=== PATIENT | female | born 1980 | race Asian ===

== ENCOUNTER → 2021-02-03 08:43 | Outpatient (BNVA) | payer OTHER, SELFPAY | PROVIDERS: PCP Nurse Practitioner Family; Visit Provider Nurse Practitioner ==

== ENCOUNTER 2021-02-08 10:47 | Outpatient (REF) | payer OTHER, SELFPAY ==
[2021-02-08 11:30] LABS: MANUAL DIFF FLAG NO
[2021-02-08 11:34] LABS: Basophils Percent Auto 0.8 % (0-2); Eosinophils Absolute Auto 0.1 X10*3/uL (0.0-0.4); Eosinophils Percent Auto 2.9 % (0-4); Hematocrit 39.3 % (37-47); Lymphocytes Absolute Auto 1.9 X10*3/uL (1.2-4.9); Lymphocytes Percent Auto 49.2 % (20-40); Mean Corpuscular HGB Conc 33.1 g/dl (31.0-35.0); Mean Corpuscular Hemoglobin 30.5 pg (27.0-33.0); Mean Corpuscular Volume 92.3 fL (80-98); Mean Platelet Volume 10.2 fL (9.4-12.3); Monocytes Absolute Auto 0.3 X10*3/uL (0.1-1.2); Monocytes Percent Auto 7.7 % (2-11); Neutrophils Absolute Auto 1.5 X10*3/uL (2.0-8.3); Neutrophils Percent Auto 39.4 % (45-73); Platelet Count 198 X10*3/uL (160-400); Red Blood Count 4.26 X10*6/uL (4.20-5.50); Red Cell Distribution Width 12.2 % (11.0-16.0); White Blood Count 3.8 X10*3/uL (4.8-10.8)
== END 2021-02-08 10:48 | disposition home or self-care (01) ==
LOC: HO.LAB 10:47
PROVIDERS: PCP Internal Medicine; Visit Provider Nurse Practitioner
DX: K21.00 Gastro-esophageal reflux disease with esophagitis, without bleeding (principal); R13.10 Dysphagia, unspecified
CPT/HCPCS: 36415; 85025

== ENCOUNTER → 2021-03-11 09:37 | Outpatient (BNVA) | payer OTHER, SELFPAY | PROVIDERS: PCP Internal Medicine; Visit Provider Nurse Practitioner ==

== ENCOUNTER 2021-04-12 12:06 | Day surgery (SDC) | payer OTHER, SELFPAY ==
[2021-04-05 11:24] VITALS: BMI 18.3
--- NOTE | 2021-04-08 08:52 | HO.ANESPROP2 ---
HPI - Anesthesia Eval Consult details Narrative: 40yo F for Upper Endoscopy PMFSH Active Problems Active Problems: All Active Problems (Updated 04/05/21 @ 11:17 by Sara Richey) GERD (gastroesophageal reflux disease) (Acute) Dysphagia (Acute) Bile reflux esophagitis (Acute) Constipation (Acute) Past Medical History Medical History GERD (gastroesophageal reflux disease) Surgical History Surgical History History of esophagogastroduodenoscopy (EGD) Hx of colonoscopy Social History Social History Are you a primary ocular care technologist to a significant other at home: No Do you presently have visiting nurse or other home services: No Alcohol intake: current Alcohol intake frequency: does not drink Use of substances other than those prescribed or required for medical reasons: No Are you DNR?: No Advance Directives Information Provided: No Recently lost weight without trying: No Eating poorly because of decreased appetite: No Nutrition Risks: No Nutritional Risk Patient : No FDLMP: 03/21/21 Meds Allergies Allergy/AdvReac Type Severity Reaction Status Date / Time No Known Allergies Allergy Verified 03/11/21 09:37 Home Medications Medication Instructions Recorded Confirmed Last Taken Type ipratropium bromide 21 mcg (0.03 1 spray INTRANASAL BEDTIME 03/11/21 04/05/21 Unknown History %) nasal spray Exam Exam Date and Time: April 08, 2021 0852 Height,Weight and Vital Signs: Height 5 ft 5 in Weight 49.895 kg Pertinent Lab Results Pertinent Lab Results: Laboratory Tests 02/08/21 11:02 WBC 3.8 L Hgb 13.0 Hct 39.3 Plt Count 198 Assessment and Plan Assessment Anesthesia Assessment: Chart Reviewed
[2021-04-12 12:44] LABS: UPreg QC Valid YES; Urine Pregnancy NEGATIVE (NEGATIVE)
[2021-04-12 12:50] VITALS: BP 104/67; PULSE 70; RESP 16; TEMP 36.4; O2SAT 100
[2021-04-12] MEDS: Lactated Ringers 1,000 ML 100 ML IVCONT (12:58)
--- NOTE | 2021-04-12 13:08 | P.CONAN_ITS ---
FORM[facility]LY [facility] Active Problems Active Problems: All Active Problems (Updated 04/05/21 @ 11:17 by Sara johnson) GERD (gastroesophageal reflux disease) (Acute) Dysphagia (Acute) Bile reflux esophagitis (Acute) Constipation (Acute) Past Medical History Medical History GERD (gastroesophageal reflux disease) Surgical History Surgical History History of esophagogastroduodenoscopy (EGD) Hx of colonoscopy Social History Social History Are you a primary palliative care specialist to a significant other at home: No Do you presently have visiting nurse or other home services: No Alcohol intake: current Alcohol intake frequency: does not drink Use of substances other than those prescribed or required for medical reasons: No Are you DNR?: No Advance Directives Information Provided: No Recently lost weight without trying: No Eating poorly because of decreased appetite: No Nutrition Risks: No Nutritional Risk Patient : No FDLMP: 03/21/21 Meds Allergies Allergy/AdvReac Type Severity Reaction Status Date / Time No Known Allergies Allergy Verified 03/11/21 09:37 Active Medications: Current Medications Generic Name Dose Route Start Last Admin Trade Name Ammon PRN Reason Stop Dose Admin Lactated Ringer's 1,000 mls @ 100 mls/hr 04/12/21 12:30 04/12/21 12:58 Lr IVCONT 100 mls/hr .Q10H ITALO Administration Home Medications Medication Instructions Recorded Confirmed Last Taken Type ipratropium bromide 21 mcg (0.03 1 spray INTRANASAL BEDTIME 03/11/21 04/05/21 Unknown History %) nasal spray Exam Exam Date and Time: April 12, 2021 1308 Height,Weight and Vital Signs: Height 5 ft 5 in Weight 49.895 kg Last Vital Signs Temp 97.6 F 04/12/21 12:50 Pulse 70 04/12/21 12:50 Resp 16 04/12/21 12:50 BP 104/67 04/12/21 12:50 Pulse Ox 100 04/12/21 12:50 Pertinent Lab Results Pertinent Lab Results: Laboratory Tests 04/12/21 12:25 Urine Test NEGATIVE Airway Mallampati Class: II TM Dist: >3cm Neck ROM: Full Heart: RRR Lungs: cTA
--- NOTE | 2021-04-12 13:24 | P.OP_ITS ---
Operative Note Operative Note Date of Service: 05/21/21 Narrative: Pre-op diagnosis: GERD, dysphagia Post-op diagnosis: other (GERD, dysphagia, gastritis) Procedure: FLEXIBLE TRANSORAL UPPER GASTROINTESTINAL ENDOSCOPY WITH BIOPSIES AND ESOPHAGEAL BALLOON DILATION Consent: Indications for the procedure and potential complications of bleeding, perforation, reaction to medications and missed diagnosis were discussed with the patient and informed consent was obtained. Instrument: Olympus GIF H 190 mid size upper endoscope Monitoring: Vital signs and clinical assessment, continuous EKG monitoring, Pulse oximetry, Carbon Dioxide monitoring and blood pressure monitoring were done throughout the procedure. Procedure: The patient was placed in the left lateral decubitis position and pre-procedure medications were administered and a bite block was placed. The endoscope was inserted into the mouth and advanced under direct vision to the third part of duodenum. A careful inspection was made as the upper endoscope was withdrawn including a retroflexed examination of the proximal stomach; Findings and interventions are described below. Findings: Larynx: Mild edema of the arytenoid cartilages Esophagus: GE junction at 35cms. No esophagitis, Carroll, stricture or ring. Biopsies were obtained from proximal esophagus to check for EOE. Esophageal balloon dilation was performed with the 19 mm (57F) CRE balloon for 60 seconds x1 Stomach: Mild gastric erythema. Biopsies were obtained. Grade 2 flap valve on retroflexed examination of the cardia. Duodenum: Normal bulb and descending duodenum Intervention: Biopsies and esophageal balloon dilation as noted above Impression and Post Procedure Diagnosis: Endoscopy Findings: LARYNX: Changes suggestive of LPRD ESOPHAGUS: GE junction at 35cms. No esophagitis, Carroll, stricture or ring. Biopsies were obtained from proximal esophagus to check for EOE. Esophageal balloon dilation was performed with the 19 mm (57F) CRE balloon for 60 seconds x1 STOMACH: Gastritis Plan: Await pathology results Patient has an appointment on 07/12/21 in the GI Clinic with AMALIA Shook. Above findings were reviewed with the patient and GERD and Esophageal Spasm handouts were given in the discharge area Surgeon: Rc Olivier MD Anesthesia: MAC (Brenda Henderson CRNA) Was an Repairer Shoe Sticks used for this Procedure?: Yes Repairer Shoe Sticks: Gary Gómez Estimated blood loss (mL): 0 Pathology: other (A- GASTRIC ANTRUM BXS R/O H. PYLORI B- PROXIMAL ESOPHAGUS BXS R/O EOE) Condition: stable Disposition: PACU
--- NOTE | 2021-04-12 13:24 | MHC.SHP ---
Pre-Procedural Eval Section A The patient is an INPATIENT: No The History & Physical has been completed within 30 days and I have reviewed it.: No Section B Chief Complaint: Dysphagia Details of Present Illness: GERD, dysphagia Relevant Family History (Specify if Yes): No Relevant Social History: None Present Medications: see Short Stay Collaborative assessment Medical History: Significant History (GERD, chronic constipation) History of Previous Operations: Relevant previous surgery/procedure and date(s) (History of esophagogastroduodenoscopy (EGD) Hx of colonoscopy) Allergies: Allergies Allergy/AdvReac Type Severity Reaction Status Date / Time No Known Allergies Allergy Verified 03/11/21 09:37 Review of Systems Sugical H&P ROS: Negative: Constitution, Cardiovascular and Respiratory and Yes, Specify: Gastrointestinal (dysphagia) Exam Surgical H&P Exam: Normal: Heart, Normal: Lungs, Normal: Extremities and Normal: Abdomen Plan Diagnosis/Plan: Unchanged I have reviewed the history and physical and performed a pertinent physical examination on my patient. No changes have occurred unless specified.
[2021-04-12 13:57] VITALS: BP 90/52; PULSE 73; RESP 16; TEMP 36.3; O2SAT 98
[2021-04-12 14:02] VITALS: BP 92/62; PULSE 56; RESP 16; O2SAT 100
[2021-04-12 14:17] VITALS: BP 93/64; PULSE 58; RESP 16; O2SAT 100
[2021-04-12 14:33] VITALS: BP 97/61; PULSE 58; RESP 16; O2SAT 100
[2021-04-12 14:43] VITALS: BP 109/70; PULSE 57; RESP 16; O2SAT 100
== END 2021-04-12 15:35 | disposition home or self-care (01) ==
PROVIDERS: Nurse Practitioner; PCP Internal Medicine; Visit Provider Internal Medicine Gastroenterology
PROC: 0DJ08ZZ Inspection of Upper Intestinal Tract, Via Natural or Artificial Opening Endoscopic (ICD-10-PCS; CPT 43235; principal; 2021-04-12 13:30)
DX: K22.4 Dyskinesia of esophagus (principal); K21.9 Gastro-esophageal reflux disease without esophagitis; R13.10 Dysphagia, unspecified; K29.50 Unspecified chronic gastritis without bleeding; Z79.899 Other long term (current) drug therapy
CPT/HCPCS: 43249; 43239; 81025; 88305; 88342; C1726; J3010

== ENCOUNTER 2021-05-23 02:05 | Emergency (ER) | payer OTHER, SELFPAY ==
[2021-05-23 02:39] VITALS: BP 114/71; PULSE 81; RESP 16; TEMP 36.4; O2SAT 98; BMI 18.3
--- NOTE | 2021-05-23 03:09 | ED.ABDPAIN ---
HPI - Abdominal Pain General Chief Complaint: Abdominal Pain Stated Complaint: ABD pain Time Seen by Provider: 05/23/21 02:15 Source: patient Mode of arrival: ambulatory Limitations: no limitations History of Present Illness HPI narrative: Patient comes emergency room complaining of suprapubic pain and burning sensation with urination. Patient states she is prone to having UTIs. Patient denies fever and chills, no back pain or flank pain. Patient denies vomiting or diarrhea Related Data Home Medications Medication Instructions Recorded Confirmed ipratropium bromide 21 mcg (0.03 1 spray INTRANASAL BEDTIME 03/11/21 04/05/21 %) nasal spray Previous Rx's Medication Instructions Recorded sucralfate 1 gram tablet 1 g PO DAILY 30 Days #30 tab 02/03/21 sennosides 8.6 mg capsule 17.2 mg PO BEDTIME 30 Days #60 cap 03/11/21 dexlansoprazole 60 mg 60 mg PO DAILY #30 cap 05/11/21 capsule,biphase delayed release cefuroxime axetil 250 mg PO Q12H #13 tab 05/23/21 phenazopyridine 100 mg PO TID #6 tab 05/23/21 Allergies Allergy/AdvReac Type Severity Reaction Status Date / Time No Known Allergies Allergy Verified 03/11/21 09:37 Review of Systems Review of Systems Constitutional : No Weight loss, No Fever, No Chills, No Night Sweats, No Fatigue, No Malaise ENT/Mouth : No Hearing loss, No Ear Pain, No Nasal Congestion, No Sinus Pain, No Hoarseness, No sore throat, No Rhinorrhea, No Swallowing Difficulty Eyes: No Eye Pain, No Swelling, No Redness, No Foreign Body, No Discharge, No Vision Changes Cardiovascular : No Chest Pain, No SOB, No Dyspnea on Exertion, No Orthopnea, No Edema, No Palpitations Respiratory : No Cough, No Sputum, No Wheezing, No Smoke Exposure, No Dyspnea Gastrointestinal : No Nausea, No Vomiting, No Diarrhea, No Constipation, complaining of suprapubic discomfort, No Hematochezia, No Melena Genitourinary : no irregular bleeding, complaining of dysuria, urinary frequency, no hematuria, No Urinary Incontinence, No Urgency, No Flank Pain, No Urinary Flow Changes, No Hesitancy Musculoskeletal : No joint pain, No Myalgias, No Joint Swelling Skin : No Skin Lesions, No rash Neuro : No Weakness, No Numbness, No Paresthesias, No Loss of Consciousness, No Dizziness, No Headache Psych : No Anxiety/Panic, No Depression, No SI/HI/AH/VH, No Social Issues, Heme/Lymph: No Bruising, No Bleeding,No Lymphadenopathy Endocrine : No Polyuria, No Polydipsia, No Temperature Intolerance Physical Exam Vital Signs: Vital Signs: Last Vital Signs Temp 97.6 F 05/23/21 02:39 Pulse 81 05/23/21 02:39 Resp 16 05/23/21 02:39 BP 114/71 05/23/21 02:39 Pulse Ox 98 05/23/21 02:39 Body Mass Index 18.3 Appearance: Alert. Oriented X3. No acute distress. Eyes: Pupils equal, round and reactive to light. ENT: Pharynx normal. Neck: Normal inspection. Neck supple. No lymph nodes noted. No crepitus CVS: Normal heart rate and rhythm. Pulses normal. Normal S1 and S2 Respiratory: No respiratory distress. Breath sounds normal. No Wheezing. No rales Abdomen: Soft, mild discomfort to palpation over the suprapubic area, no left or right lower quadrant pain. No rigidity. No distention. good BS x4 Skin: Skin warm and dry. Normal skin color. Normal skin turgor. Extremities: No lower extremity edema. No lower extremity edema. No Lacerations. No Rash Neuro: Oriented X 3. No motor deficit. No sensory deficit. Moving all extermities. No slurred speech. Course Course Course Narrative: Patient's urine is positive for UTI. Patient states that she only has 1 kidney, had 1 kidney surgical removed, unclear the reason, but she thinks is secondary to a defect. Patient was given the 1st dose of cefuroxime and phenazopyridine in the emergency room. At this time, pyelonephritis is not suspected, sepsis is not suspected. MDM - Abdominal Pain Lab Data Labs: Lab Results 05/23/21 05/23/21 Range/Units 03:05 03:05 Urine Color YELLOW Urine Appearance HAZY Urine pH 6.0 (5.0-8.0) Ur Specific [place] <= 1.005 (1.005-1.025) Urine Protein NEG (NEG-TRACE) MG/DL Urine Glucose (UA) NEG (NEG) MG/DL Urine Ketones NEG (NEG) MG/DL Urine Blood 2+ H (NEG) Urine Nitrite NEG (NEG) Ur Leukocyte Esterase 3+ H (NEG) Urine Test NEGATIVE (NEGATIVE) Discharge Plan Discharge Clinical Impression: UTI (urinary tract infection) Qualifiers: Urinary tract infection type: site unspecified Hematuria presence: without hematuria Qualified Code(s): N39.0 - Urinary tract infection, site not specified Patient Disposition: Home, Self-Care Instructions: Urinary Tract Infection in Women (ED) Additional Instructions: Please follow-up with your primary care physician tomorrow. If you have any worsening or new symptoms, please return to the emergency room or call 911 Prescriptions: New cefuroxime axetil 250 mg tablet 250 mg PO Q12H Qty: 13 RF: 0 phenazopyridine 100 mg tablet 100 mg PO TID Qty: 6 RF: 0 No Action dexlansoprazole [Dexilant] 60 mg capsule,biphase delayed releas 60 mg PO DAILY Qty: 30 RF: 0 senna 8.6 mg capsule 17.2 mg PO BEDTIME 30 Days Qty: 60 RF: 1 sucralfate [Carafate] 1 gram tablet 1 g PO DAILY 30 Days Qty: 30 RF: 3 PMFSH Past Medical History Medical History GERD (gastroesophageal reflux disease) Surgical History History of esophagogastroduodenoscopy (EGD) Hx of colonoscopy Social History Social History Are you a primary neurocritical care physician to a significant other at home: No Do you presently have visiting nurse or other home services: No Alcohol intake: current Alcohol intake frequency: does not drink Advance Directives: No Advance Directives Information Provided: No Patient : No
[2021-05-23 03:13] LABS: Glucose Urine UA NEG (NEG); Leukocyte Esterase Urine 3+ (NEG); Nitrite Urine NEG (NEG); Specific Gravity - Urine <= 1.005 (1.005-1.025); UACC Culture Trigger YES; Urine Blood 2+ (NEG); Urine Ketones NEG (NEG); Urine Protein NEG (NEG-TRACE)
[2021-05-23 03:16] LABS: Appearance Urine HAZY; Color Urine YELLOW
[2021-05-23 03:17] LABS: UPreg QC Valid YES; Urine Pregnancy NEGATIVE (NEGATIVE)
[2021-05-23 03:25] LABS: Bacteria Urine 1+ /LPF; Squamous Epithelial Cell Urine 1+ /LPF; UACC CULT YES; WBC Urine 30-49 /HPF (0-4)
[2021-05-23] MEDS: Phenazopyridine HCL 100 MG TABLET PO (03:33)
== END 2021-05-23 03:36 | disposition home or self-care (01) ==
PROVIDERS: Emergency Provider Emergency Medicine; PCP Internal Medicine
DX: N39.0 Urinary tract infection, site not specified (principal); Z90.5 Acquired absence of kidney
CPT/HCPCS: 81001; 81025; 87086; 99283

== ENCOUNTER → 2021-05-30 10:47 | Outpatient (BNVA) | payer OTHER, SELFPAY | PROVIDERS: PCP Internal Medicine; Visit Provider Nurse Practitioner ==

== ENCOUNTER → 2021-08-01 09:26 | Outpatient (BNVA) | payer OTHER, SELFPAY | PROVIDERS: PCP Internal Medicine; Visit Provider Nurse Practitioner ==

== ENCOUNTER 2021-08-10 07:53 | Outpatient (REF) | payer OTHER, SELFPAY ==
--- NOTE | ~2021-08-10 | US_ITS ---
EXAMINATION: US ABDOMEN COMPLETE CLINICAL INFORMATION: Gastroesophageal reflux disease without esophagitis. COMPARISON: CT abdomen and pelvis 12/27/2019. Ultrasound abdomen 07/25/2010. TECHNIQUE: Real-time imaging of the abdominal viscera. FINDINGS: PANCREAS: Normal. ABDOMINAL AORTA: The proximal, mid, and distal segments are normal in caliber. INFERIOR VENA CAVA: Visualized portions are normal. LIVER: Normal. The liver is normal in size. The liver contour is normal. Parenchymal echogenicity is normal. No focal hepatic lesion. There is no intrahepatic biliary duct dilatation seen. GALLBLADDER: Normal. The gallbladder is physiologically distended without evidence of stones, sludge, polyps, wall thickening or pericholecystic fluid. COMMON BILE DUCT: Normal in caliber measuring 0.8 cm in diameter. RIGHT KIDNEY: There is a 3 mm echogenic density with twinkle artifact in the upper pole questionable for a stone. No hydronephrosis or focal parenchymal lesions. The kidney measures 12.2 cm in maximum dimension. LEFT KIDNEY: Surgically absent. SPLEEN: Normal. The spleen measures 8.3 cm in maximum dimension. FREE FLUID: None. US/US abdomen complete IMPRESSION: Question small right renal stone. Surgically absent left kidney.
== END 2021-08-10 07:54 | disposition home or self-care (01) ==
LOC: HO.US 07:53
PROVIDERS: Visit Provider Nurse Practitioner
DX: K21.9 Gastro-esophageal reflux disease without esophagitis (principal)
CPT/HCPCS: 76700

== ENCOUNTER → 2021-09-15 09:49 | Outpatient (BNVA) | payer OTHER, SELFPAY | PROVIDERS: PCP Internal Medicine; Visit Provider Nurse Practitioner ==

== ENCOUNTER → 2021-11-03 08:50 | Outpatient (BNVA) | payer OTHER, SELFPAY | PROVIDERS: PCP Internal Medicine; Visit Provider Nurse Practitioner ==

== ENCOUNTER → 2021-12-15 09:04 | Outpatient (BNVA) | payer OTHER, SELFPAY | PROVIDERS: PCP Internal Medicine; Visit Provider Nurse Practitioner ==

== ENCOUNTER → 2022-03-14 10:35 | Outpatient (BNVA) | payer OTHER, SELFPAY | PROVIDERS: PCP Internal Medicine; Visit Provider Nurse Practitioner | DX: K21.00 Gastro-esophageal reflux disease with esophagitis, without bleeding (principal) ==

== ENCOUNTER → 2022-11-10 08:31 | Outpatient (BNVA) | payer OTHER, SELFPAY | PROVIDERS: PCP Internal Medicine; Visit Provider Nurse Practitioner | DX: K21.9 Gastro-esophageal reflux disease without esophagitis (principal) ==

== ENCOUNTER → 2022-12-14 08:10 | Outpatient (BNVA) | payer OTHER, SELFPAY | PROVIDERS: PCP Internal Medicine; Visit Provider Nurse Practitioner | DX: Z13.89 Encounter for screening for other disorder (principal) ==

== ENCOUNTER → 2023-01-04 08:01 | Outpatient (BNVA) | payer OTHER, SELFPAY | PROVIDERS: PCP Internal Medicine; Visit Provider Nurse Practitioner | DX: Z13.89 Encounter for screening for other disorder (principal) ==

== ENCOUNTER → 2023-03-29 07:56 | Outpatient (BNVA) | payer OTHER, SELFPAY | PROVIDERS: PCP Internal Medicine; Visit Provider Nurse Practitioner ==

== ENCOUNTER 2023-06-08 08:18 | Outpatient (AMB) | payer OTHER, SELFPAY ==
--- NOTE | 2023-06-08 08:27 | MHC.OFFVIS ---
Intake Vital Signs 06/08/23 08:29 Height 5 ft 5 in Weight 112 lb 6.972 oz BMI 18.7 BP 97/65 Blood Pressure Location Lt brachial Position Sitting Pulse 65 Intake Visit Reasons: 2 month follow up Intake Note: Karena presents in the office as a 2 month follow up. CC: She states that she is not having any concerns today. Net Developer Software Engineer C Required: Yes Net Developer Software Engineer C Name: Allergies No Known Allergies Allergy (Verified 06/08/23 08:29) HPI 2 month follow up HPI Details Assessment & Plan (1) Rectal bleeding: ?Code(s): K62.5 - Hemorrhage of anus and rectum ?Plan: Only occasional pain, but resolves with eating something and worse with OJ etc acidy. Having BRB on the TT, was using probiotics but stools too dry. Some rectal pain. Prcotosl cream. She moves her bowels every am, but having tenesmus despite not taking senna. Trial IB guard. ROV 6 weeks. (2) Tenesmus: ?Code(s): R19.8 - Other specified symptoms and signs involving the digestive system and abdomen (3) GERD (gastroesophageal reflux disease): ?Comment: With fairly extensive esophagitis on 04/2021 EGD she needs to stay on her Dexilant. ?Code(s): K21.9 - Gastro-esophageal reflux disease without esophagitis (4) Epigastric pain: ?Code(s): R10.13 - Epigastric pain (5) Dysphagia: ?Comment: Worsened with NSAIDs, improved with short-term Carafate likely caused by esophageal irritation ?Code(s): R13.10 - Dysphagia, unspecified (6) Constipation: ?Code(s): K59.00 - Constipation, unspecified ? ? ? Medications: New hydrocortisone 2.5 % (Proctosol HC) ? ? BE SURE TO INCLU DE RECTAL APPICATO R!! 1 appl? UT BID 30 grams 6RF hemorrho ids K64.9 - Unspecifie d hemorrhoids ? TODAY'S VISIT Tomasa # her translates per patient request The Proctosol cream resolved the bleeding. She continues on her Dexilant with good control of her GERD has famotidine for breakthrough. She has been using the IBD guard [id number] and will probably look for another homeopathic remedy as well for her tenesmus. Return office visit in 6 months REPLACED BY [facility] Medical History GERD (gastroesophageal reflux disease) Surgical History History of esophagogastroduodenoscopy (EGD) Hx of colonoscopy Social History Are you a primary patient care manager to a significant other at home: No Do you presently have visiting nurse or other home services: No Alcohol intake: current Alcohol intake frequency: does not drink Review of Systems Const Denies fatigue, Denies fever(s), Denies night sweats, Denies poor appetite and Denies weight loss ENT Reports Normal hearing present, Denies dental pain, Denies dysphagia, Denies hearing loss, Denies mouth pain, Denies odynophagia, Denies throat swelling, Denies tongue swelling and Reports other (Dentition adequate) Card Reports no additional complaints Resp Reports no additional complaints GI Denies abdominal pain, Denies melena, Denies bloating, Denies hematochezia, Denies constipation, Denies GI cramping, Denies dysphagia, Denies excessive flatus, Denies early satiety, Reports heartburn, Denies diarrhea, Denies nausea, Denies odynophagia, Denies vomiting and Denies hematemesis Skin/Breast Denies pruritus, Denies lesions, Denies rash and Denies jaundice Neuro Reports Normal hearing present and Denies Abnormal speech present Endo Denies fatigue Aller/Immun Denies throat swelling and Denies tongue swelling Physical Exam Vital Signs: Last Vital Signs Pulse 65 06/08/23 08:29 BP 97/65 06/08/23 08:29 BMI result Body Mass Index 18.7 Const General: cooperative, no acute distress, well developed and well groomed Nutritional Appearance: average body habitus and well nourished Orientation/consciousness: oriented to person, oriented to place and oriented to time Limitations: language barrier HEENT Head: Yes normocephalic and Yes atraumatic Eyes General: appearance normal, both eyes and all related structures Pupils: Equal, round and reactive pupils present Neck Neck: Yes normal visual inspection and Yes no lymphadenopathy Thyroid: Thyroid normal Resp Effort & Inspection: normal respiratory effort and able to speak in complete sentences Auscultation: clear to auscultation bilaterally Cardio Rate: regular rate Rhythm: regular rhythm Heart sounds: Normal, physiologic split S2 sound present Peripheral pulses: radial pulses present and posterior tibial pulses present GI Inspection: No distended and No Abdominal panniculus present Palpation (GI): Soft to palpation, nontender, no guarding, not rigid and No hepatosplenomegaly present Percussion: Yes normal to percussion Auscultation: normal bowel sounds Rectal Exam - Female: deferred Skin General skin exam: no rashes or lesions noted, turgor normal, skin not dry, no jaundice, No spider nevi and no striae Rashes: no rashes Nails: normal Neuro General: oriented to person, oriented to place and oriented to time Cranial nerves: Yes Equal, round and reactive pupils present and Yes Normal hearing present Speech: No Abnormal speech present Extrem General: Yes normal to inspection, No clubbing, No cyanosis and No edema Psych Appearance: grossly normal and well kempt Mental Status: mental status grossly normal Speech and movement: Normal speech and movement present Affect: normal affect Attitude: cooperative Thought process: Normal thought process present and not confabulating Thought content: Normal thought content present Insight: Fair insight present (Psych) Judgement: Fair judgement present (Psych) Assessment & Plan Assessment & Plan (1) Rectal bleeding: Code(s): K62.5 - Hemorrhage of anus and rectum Plan: Mandarin # her translates per patient request The Proctosol cream resolved the bleeding. She continues on her Dexilant with good control of her GERD has famotidine for breakthrough. She has been using the IBD guard [id number] and will probably look for another homeopathic remedy as well for her tenesmus. Return office visit in 6 months (2) Epigastric pain: Code(s): R10.13 - Epigastric pain (3) GERD (gastroesophageal reflux disease): Comment: With fairly extensive esophagitis on 04/2021 EGD she needs to stay on her Dexilant. Code(s): K21.9 - Gastro-esophageal reflux disease without esophagitis (4) Dysphagia: Comment: Worsened with NSAIDs, improved with short-term Carafate likely caused by esophageal irritation Code(s): R13.10 - Dysphagia, unspecified (5) Bile reflux esophagitis: Comment: Worsen with NSAID, active inflammation irritation on 04/2021 EGD no Carroll's Code(s): K21.00 - Gastro-esophageal reflux disease with esophagitis, without bleeding (6) Constipation: Code(s): K59.00 - Constipation, unspecified (7) Tenesmus: Code(s): R19.8 - Other specified symptoms and signs involving the digestive system and abdomen Coding Level of Care Code Est Pt Level 3 (49032) Diagnoses Rectal bleeding K62.5 Epigastric pain R10.13 GERD (gastroesophageal reflux disease) K21.9 Dysphagia R13.10 Bile reflux esophagitis K21.00 Constipation K59.00 Tenesmus R19.8
[2023-06-08 08:29] VITALS: BP 97/65; PULSE 65; BMI 18.7
== END 2023-06-08 08:38 | disposition home or self-care (01) ==
PROVIDERS: PCP Internal Medicine; Visit Provider Nurse Practitioner
DX: K62.5 Hemorrhage of anus and rectum (principal); R10.13 Epigastric pain; K21.9 Gastro-esophageal reflux disease without esophagitis; R13.10 Dysphagia, unspecified; K21.00 Gastro-esophageal reflux disease with esophagitis, without bleeding; K59.00 Constipation, unspecified; R19.8 Other specified symptoms and signs involving the digestive system and abdomen
CPT/HCPCS: 99213

== ENCOUNTER → 2023-06-08 08:18 | Outpatient (BNVA) | payer OTHER, SELFPAY | PROVIDERS: PCP Internal Medicine; Visit Provider Nurse Practitioner ==

== ENCOUNTER 2024-02-13 09:48 | Outpatient (AMB) | payer OTHER, SELFPAY ==
--- NOTE | 2024-02-13 10:00 | MHC.OFFVIS ---
Vital Signs 02/13/24 10:01 Height 5 ft 5 in Weight 114 lb 10.246 oz BMI 19.1 BP 102/72 Blood Pressure Location Lt brachial Position Sitting Pulse 69 Intake Visit Reasons: r/s from 01/08 Intake Note: Karena returns to in office follow up of GERD and constipation. CC: Patient c/o occasional abdominal cramping. Denies other GI symptoms. Certified Industrial Hygienist Required: Yes Certified Industrial Hygienist Name: Accompanied by: Allergies No Known Allergies Allergy (Verified 02/13/24 10:03) HPI HPI r/s from 01/08: Details: Assessment & Plan (1) Rectal bleeding: Code(s): K62.5 - Hemorrhage of anus and rectum Plan: Tomasa # her translates per patient request The Proctosol cream resolved the bleeding. She continues on her Dexilant with good control of her GERD has famotidine for breakthrough. She has been using the IB guard [id number] and will probably look for another homeopathic remedy as well for her tenesmus. Return office visit in 6 months (2) Epigastric pain: Code(s): R10.13 - Epigastric pain (3) GERD (gastroesophageal reflux disease): Comment: With fairly extensive esophagitis on 04/2021 EGD she needs to stay on her Dexilant. Code(s): K21.9 - Gastro-esophageal reflux disease without esophagitis (4) Dysphagia: Comment: Worsened with NSAIDs, improved with short-term Carafate likely caused by esophageal irritation Code(s): R13.10 - Dysphagia, unspecified (5) Bile reflux esophagitis: Comment: Worsen with NSAID, active inflammation irritation on 04/2021 EGD no Carroll's Code(s): K21.00 - Gastro-esophageal reflux disease with esophagitis, without bleeding (6) Constipation: Code(s): K59.00 - Constipation, unspecified (7) Tenesmus: Code(s): R19.8 - Other specified symptoms and signs involving the digestive system and abdomen TODAY'S VISIT Tomasa # her translates per patient request She has a new sx of periumbilical pain that feels like muscle pulling pain. This happens prior to a BM and is relieved with defecation. However, it is very painful about 07/22. REviewed labs at [facility] site CBC and chem. No associated N/V/D fevers, malaise, no new meds, no diet changes, no sick contacts. At this time will do some additional testing including a CT scan and see if her symptoms subside over time as it possibly could be related to something like a norovirus. ROV 8 weeks [facility] Medical History GERD (gastroesophageal reflux disease) Surgical History Hx of colonoscopy History of esophagogastroduodenoscopy (EGD) Social History Are you a primary child care sitter to a significant other at home: No Do you presently have visiting nurse or other home services: No Alcohol intake: current Alcohol intake frequency: does not drink Review of Systems Const Denies fatigue, Denies fever(s), Denies night sweats, Denies poor appetite and Denies weight loss ENT Reports Normal hearing present, Denies dental pain, Denies dysphagia, Denies hearing loss, Denies mouth pain, Denies odynophagia, Denies throat swelling, Denies tongue swelling and Reports other (Dentition adequate) Card Reports no additional complaints Resp Reports no additional complaints GI Details: Reports abdominal pain, Denies melena, Denies bloating, Denies hematochezia, Denies constipation, Reports GI cramping, Denies dysphagia, Denies excessive flatus, Denies early satiety, Reports heartburn, Denies diarrhea, Denies nausea, Denies odynophagia, Denies vomiting and Denies hematemesis Skin/Breast Denies pruritus, Denies lesions, Denies rash and Denies jaundice Neuro Reports Normal hearing present and Denies Abnormal speech present Endo Denies fatigue Aller/Immun Denies throat swelling and Denies tongue swelling Physical Exam Vital Signs: Last Vital Signs Pulse 69 02/13/24 10:01 BP 102/72 02/13/24 10:01 BMI result Body Mass Index 19.1 Const General: cooperative, no acute distress, well developed and well groomed Nutritional Appearance: average body habitus and well nourished Orientation/consciousness: oriented to person, oriented to place and oriented to time Limitations: language barrier HEENT Head: Yes normocephalic and Yes atraumatic Eyes General: appearance normal, both eyes and all related structures Pupils: Equal, round and reactive pupils present Neck Neck: Yes normal visual inspection and Yes no lymphadenopathy Thyroid: Thyroid normal Resp Effort & Inspection: normal respiratory effort and able to speak in complete sentences Auscultation: clear to auscultation bilaterally Cardio Rate: regular rate Rhythm: regular rhythm Heart sounds: Normal, physiologic split S2 sound present Peripheral pulses: radial pulses present and posterior tibial pulses present GI Inspection: No distended and No Abdominal panniculus present Palpation (GI): Soft to palpation, nontender, no guarding, not rigid and No hepatosplenomegaly present Percussion: Yes normal to percussion Auscultation: normal bowel sounds Rectal Exam - Female: deferred Skin General skin exam: no rashes or lesions noted, turgor normal, skin not dry, no jaundice, No spider nevi and no striae Rashes: no rashes Nails: normal Neuro General: oriented to person, oriented to place and oriented to time Cranial nerves: Yes Equal, round and reactive pupils present and Yes Normal hearing present Speech: No Abnormal speech present Extrem General: Yes normal to inspection, No clubbing, No cyanosis and No edema Psych Appearance: grossly normal and well kempt Mental Status: mental status grossly normal Speech and movement: Normal speech and movement present Affect: normal affect Attitude: cooperative Thought process: Normal thought process present and not confabulating Thought content: Normal thought content present Insight: Limited insight present (Psych) Judgement: Limited judgement present (Psych) Assessment & Plan Assessment & Plan (1) Periumbilical abdominal pain: Code(s): R10.33 - Periumbilical pain Category: Medical Plan Tomasa # her translates per patient request She has a new sx of periumbilical pain that feels like muscle pulling pain. This happens prior to a BM and is relieved with defecation. However, it is very painful about 9/10. REviewed labs at [facility] site CBC and chem. No associated N/V/D fevers, malaise, no new meds, no diet changes, no sick contacts. At this time will do some additional testing including a CT scan and see if her symptoms subside over time as it possibly could be related to something like a norovirus. ROV 8 weeks Orders: Orders Colonoscopy - GI Use Only 02/13/24 R10.33 - Periumbilical pain Creatinine 02/13/24 R10.33 - Periumbilical pain CT abdomen pelvis w IV con 02/13/24 R10.33 - Periumbilical pain C Reactive Protein 02/13/24 R10.33 - Periumbilical pain TSH reflex Free T4 02/13/24 R10.33 - Periumbilical pain Blood Urea Nitrogen 02/13/24 R10.33 - Periumbilical pain Medications: New dicyclomine 10 mg PO QID PRN 90 caps 3RF abdominal pain R10.33 - Periumbilical pain Refilled dexlansoprazole 60 mg PO DAILY 90 caps 1RF K21.9 - Gastro-esophageal reflux disease without esophagitis, K21.00 - Gastro-esophageal reflux disease with esophagitis, without bleeding, R13.10 - Dysphagia, unspecified Discontinued lansoprazole Discontinued Reason: Doctor's Order 30 mg PO BID 60 caps 1RF K21.9 - Gastro-esophageal reflux disease without esophagitis Coding Level of Care Code Est Pt Level 4 (39784) Diagnoses Periumbilical abdominal pain R10.33
[2024-02-13 10:01] VITALS: BP 102/72; PULSE 69; BMI 19.1
== END 2024-02-13 10:36 | disposition home or self-care (01) ==
PROVIDERS: PCP Internal Medicine; Visit Provider Nurse Practitioner
DX: R10.33 Periumbilical pain (principal)
CPT/HCPCS: 99214

== ENCOUNTER → 2024-02-13 09:48 | Outpatient (BNVA) | payer OTHER, SELFPAY | PROVIDERS: PCP Internal Medicine; Visit Provider Nurse Practitioner ==

== ENCOUNTER 2024-03-05 07:56 | Outpatient (REF) | payer OTHER, SELFPAY ==
[2024-03-05 09:03] LABS: Blood Urea Nitrogen 10 mg/dL (9-16); C Reactive Protein < 0.04 mg/dL (< or = 0.50); Estimated Glomerular Filt Rate > 60
[2024-03-05 09:21] LABS: TSH reflex Free T4 1.21 uIU/mL (0.32-4.0)
== END 2024-03-05 07:57 | disposition home or self-care (01) ==
LOC: HO.LAB 07:56
PROVIDERS: PCP Internal Medicine; Visit Provider Nurse Practitioner
DX: R10.33 Periumbilical pain (principal)
CPT/HCPCS: 36415; 82565; 84443; 84520; 86140

== ENCOUNTER 2024-04-14 14:10 | Outpatient (REF) | payer OTHER, SELFPAY ==
--- NOTE | ~2024-04-14 | CT_ITS ---
EXAMINATION: CT ABDOMEN AND PELVIS WITH CONTRAST CLINICAL INFORMATION: Periumbilical pain. COMPARISON: Ultrasound abdomen 08/10/2021, CT abdomen and pelvis 12/27/2019. TECHNIQUE: Multidetector volumetric images were obtained from the superior aspect of the liver through the pubic symphysis following administration 85 mL of Omnipaque 350 intravenous contrast. Sagittal and coronal reformatted images were obtained on the technologist's workstation. Oral contrast: No This CT examination was performed using dose optimization techniques as appropriate, variously including the following: *Automated exposure control *Adjustment of mA and/or kV according to patient size (this includes techniques or standardized protocols for targeted exams where dose is matched to indication/reason for exam; i.e. extremities or head) *Use of iterative reconstruction technique DLP: 218 mGy-cm FINDINGS: LUNG BASES: The visualized lung bases are unremarkable. LIVER, GALLBLADDER, AND BILIARY TREE: The liver is normal in size, shape, and attenuation. No focal hepatic lesion or biliary ductal dilatation is present. The gallbladder is unremarkable with no evidence of radiopaque gallstones, gallbladder wall thickening, or obvious pericholecystic inflammatory changes. PANCREAS: Unremarkable. SPLEEN: Unremarkable. ADRENAL GLANDS: Unremarkable. KIDNEYS AND URETERS: The left kidney is tiny and atrophic measuring 3.5 cm. The right kidney is normal in size, shape, and attenuation. No hydronephrosis, hydroureter, or calculi seen. No perinephric stranding. BLADDER: Unremarkable. GASTROINTESTINAL TRACT: The small and large bowel are unremarkable. The appendix is unremarkable. ABDOMINAL WALL: No significant hernia is appreciated. There is a tiny periumbilical hernia seen containing only fat. LYMPH NODES: Normal. VASCULAR: Unremarkable. PELVIC VISCERA: The retroverted uterus and adnexa are unremarkable. Small amount of free pelvic fluid is seen in the cul-de-sac. OSSEOUS STRUCTURES: Unremarkable. CT/CT abdomen pelvis w IV con IMPRESSION: 1. A cause for the patient's periumbilical pain has not been found. 2. Incidental note made of a tiny atrophic left kidney. Fleischner guidelines were followed.
[2024-04-14] MEDS: iohexoL 350 MG/ML 100 ML INFUS..BTL 85 ML IV (16:25)
== END 2024-04-14 14:11 | disposition home or self-care (01) ==
LOC: HO.CT 14:10
PROVIDERS: PCP Internal Medicine; Visit Provider Nurse Practitioner
DX: R10.33 Periumbilical pain (principal)
CPT/HCPCS: 74177; Q9967

== ENCOUNTER 2024-05-08 11:21 | Outpatient (AMB) | payer OTHER, SELFPAY ==
--- NOTE | 2024-05-08 11:28 | A.OFFVIS_ITS ---
Vital Signs 05/08/24 11:37 Height 5 ft 5 in Weight 113 lb 5.082 oz BMI 18.9 BP 103/63 Blood Pressure Location Lt brachial Position Sitting Pulse 70 Intake Visit Reasons: CT scan follow up Intake Note: Karena presents to in office visit today in follow up of CT scan. CC: Patient denies having any new GI symptoms or concerns today. Eligibility Technician Required: Yes Eligibility Technician Name: daughter Accompanied by: Daughter Allergies No Known Allergies Allergy (Verified 05/08/24 11:41) HPI HPI CT scan follow up: Details: Assessment & Plan (1) Periumbilical abdominal pain: Code(s): R10.33 - Periumbilical pain Category: Medical Plan Tomasa # her translates per patient request She has a new sx of periumbilical pain that feels like muscle pulling pain. This happens prior to a BM and is relieved with defecation. However, it is very painful about 07/22. REviewed labs at [facility] [place] site CBC and chem. No associated N/V/D fevers, malaise, no new meds, no diet changes, no sick contacts. At this time will do some additional testing including a CT scan and see if her symptoms subside over time as it possibly could be related to something like a norovirus. ROV 8 weeks Orders: Orders Colonoscopy - GI Use Only 02/13/24 R10.33 - Periumbilical pain Creatinine 02/13/24 R10.33 - Periumbilical pain CT abdomen pelvis w IV con 02/13/24 R10.33 - Periumbilical pain C Reactive Protein 02/13/24 R10.33 - Periumbilical pain TSH reflex Free T4 02/13/24 R10.33 - Periumbilical pain Blood Urea Nitrogen 02/13/24 R10.33 - Periumbilical pain Medications: New dicyclomine 10 mg PO QID PRN 90 caps 3RF abdominal pain R10.33 - Periumbilical pain Refilled dexlansoprazole 60 mg PO DAILY 90 caps 1RF K21.9 - Gastro-esophageal reflux disease without esophagitis, K21.00 - Gastro-esophageal reflux disease with esophagitis, without bleeding, R13.10 - Dysphagia, unspecified Discontinued lansoprazole Discontinued Reason: Doctor's Order 30 mg PO BID 60 caps 1RF K21.9 - Gastro-esophageal reflux disease without esophagitis LABS: Laboratory Tests 03/05/24 08:13 C-Reactive Protein < 0.[address] ABDOMEN AND PELVIS 05/06/24 FINDINGS: LUNG BASES: The visualized lung bases are unremarkable. LIVER, GALLBLADDER, AND BILIARY TREE: The liver is normal in size, shape, and attenuation. No focal hepatic lesion or biliary ductal dilatation is present. The gallbladder is unremarkable with no evidence of radiopaque gallstones, gallbladder wall thickening, or obvious pericholecystic inflammatory changes. PANCREAS: Unremarkable. SPLEEN: Unremarkable. ADRENAL GLANDS: Unremarkable. KIDNEYS AND URETERS: The left kidney is tiny and atrophic measuring 3.5 cm. The right kidney is normal in size, shape, and attenuation. No hydronephrosis, hydroureter, or calculi seen. No perinephric stranding. BLADDER: Unremarkable. GASTROINTESTINAL TRACT: The small and large bowel are unremarkable. The appendix is unremarkable. ABDOMINAL WALL: No significant hernia is appreciated. There is a tiny periumbilical hernia seen containing only fat. LYMPH NODES: Normal. VASCULAR: Unremarkable. PELVIC VISCERA: The retroverted uterus and adnexa are unremarkable. Small amount of free pelvic fluid is seen in the cul-de-sac. OSSEOUS STRUCTURES: Unremarkable. CT/CT abdomen pelvis w IV con IMPRESSION: 1. A cause for the patient's periumbilical pain has not been found. 2. Incidental note made of a tiny atrophic left kidney. COLONOSCOPY BIOPSY TODAY'S VISIT MANDARIN # female family member translates per patient request From last note: periumbilical pain that feels like muscle pulling pain. This happens prior to a BM and is relieved with defecation. However, it is very painful about 9/10. We review all of the test that do not show any serious pathology to explain her pain. Fortunately the pain has not returned and she has not been using the dicyclomine. It likely was bowel irritability and I tell her that if it does return then she can try the dicyclomine. She continues on her Dexilant with g ood control of her GERD. At this point she is satisfied with her GI regimen and does not request a require any further workup. Since she is 44 I still want to persist with a colonoscopy for screening and I will put another note into the schedulers since she never heard to schedule a date. ROV 6 mos [facility] Medical History (Updated 05/08/24 @ 16:43 by BRIONNA Shook) Epigastric pain GERD (gastroesophageal reflux disease) Surgical History Hx of colonoscopy History of esophagogastroduodenoscopy (EGD) Social History Are you a primary cna caregiver to a significant other at home: No Do you presently have visiting nurse or other home services: No Alcohol intake: current Alcohol intake frequency: does not drink Review of Systems Const Denies fatigue, Denies fever(s), Denies night sweats, Denies poor appetite and Denies weight loss ENT Reports Normal hearing present, Denies dental pain, Denies dysphagia, Denies hearing loss, Denies mouth pain, Denies odynophagia, Denies throat swelling, Denies tongue swelling and Reports other (Dentition adequate) Card Reports no additional complaints Resp Reports no additional complaints GI Details: Denies abdominal pain, Denies melena, Denies bloating, Denies hematochezia, Denies constipation, Denies GI cramping, Denies dysphagia, Denies excessive flatus, Denies early satiety, Reports heartburn, Denies diarrhea, Denies nausea, Denies odynophagia, Denies vomiting and Denies hematemesis Skin/Breast Denies pruritus, Denies lesions, Denies rash and Denies jaundice Neuro Reports Normal hearing present and Denies Abnormal speech present Endo Denies fatigue Aller/Immun Denies throat swelling and Denies tongue swelling Physical Exam Vital Signs: Last Vital Signs Pulse 70 05/08/24 11:37 BP 103/63 05/08/24 11:37 BMI result Body Mass Index 18.9 Const General: cooperative, no acute distress, well developed and well groomed Nutritional Appearance: well nourished and thin Orientation/consciousness: oriented to person, oriented to place and oriented to time Limitations: language barrier HEENT Head: Yes normocephalic and Yes atraumatic Eyes General: appearance normal, both eyes and all related structures Pupils: Equal, round and reactive pupils present Neck Neck: Yes normal visual inspection and Yes no lymphadenopathy Thyroid: Thyroid normal Resp Effort & Inspection: normal respiratory effort and able to speak in complete sentences Auscultation: clear to auscultation bilaterally Cardio Rate: regular rate Rhythm: regular rhythm Heart sounds: Normal, physiologic split S2 sound present Peripheral pulses: radial pulses present and posterior tibial pulses present GI Inspection: No distended and No Abdominal panniculus present Palpation (GI): Soft to palpation, nontender, no guarding, not rigid and No hepatosplenomegaly present Percussion: Yes normal to percussion Auscultation: normal bowel sounds Rectal Exam - Female: deferred Skin General skin exam: no rashes or lesions noted, turgor normal, skin not dry, no jaundice, No spider nevi and no striae Rashes: no rashes Nails: normal Neuro General: oriented to person, oriented to place and oriented to time Cranial nerves: Yes Equal, round and reactive pupils present and Yes Normal hearing present Speech: No Abnormal speech present Extrem General: Yes normal to inspection, No clubbing, No cyanosis and No edema Psych Appearance: grossly normal and well kempt Mental Status: mental status grossly normal Speech and movement: Normal speech and movement present Affect: normal affect Attitude: cooperative Thought process: Normal thought process present and not confabulating Thought content: Normal thought content present Insight: Limited insight present (Psych) Judgement: Limited judgement present (Psych) Results Reviewed Results Reviewed: Laboratory Tests 03/05/24 08:13 C-Reactive Protein < 0.[address] ABDOMEN AND PELVIS 05/06/24 FINDINGS: LUNG BASES: The visualized lung bases are unremarkable. LIVER, GALLBLADDER, AND BILIARY TREE: The liver is normal in size, shape, and attenuation. No focal hepatic lesion or biliary ductal dilatation is present. The gallbladder is unremarkable with no evidence of radiopaque gallstones, gallbladder wall thickening, or obvious pericholecystic inflammatory changes. PANCREAS: Unremarkable. SPLEEN: Unremarkable. ADRENAL GLANDS: Unremarkable. KIDNEYS AND URETERS: The left kidney is tiny and atrophic measuring 3.5 cm. The right kidney is normal in size, shape, and attenuation. No hydronephrosis, hydroureter, or calculi seen. No perinephric stranding. BLADDER: Unremarkable. GASTROINTESTINAL TRACT: The small and large bowel are unremarkable. The appendix is unremarkable. ABDOMINAL WALL: No significant hernia is appreciated. There is a tiny periumbilical hernia seen containing only fat. LYMPH NODES: Normal. VASCULAR: Unremarkable. PELVIC VISCERA: The retroverted uterus and adnexa are unremarkable. Small amount of free pelvic fluid is seen in the cul-de-sac. OSSEOUS STRUCTURES: Unremarkable. CT/CT abdomen pelvis w IV con IMPRESSION: 1. A cause for the patient's periumbilical pain has not been found. 2. Incidental note made of a tiny atrophic left kidney. Assessment & Plan Assessment & Plan (1) GERD (gastroesophageal reflux disease): Comment: With fairly extensive esophagitis on 04/2021 EGD she needs to stay on her Dexilant. Code(s): K21.9 - Gastro-esophageal reflux disease without esophagitis Category: Medical (2) Periumbilical abdominal pain: Code(s): R10.33 - Periumbilical pain Category: Medical (3) Rectal bleeding: Code(s): K62.5 - Hemorrhage of anus and rectum Category: Medical Plan TOMASA # female family member translates per patient request From last note: periumbilical pain that feels like muscle pulling pain. This happens prior to a BM and is relieved with defecation. However, it is very painful about 9/10. We review all of the test that do not show any serious pathology to explain her pain. Fortunately the pain has not returned and she has not been using the dicyclomine. It likely was bowel irritability and I tell her that if it does return then she can try the dicyclomine. She continues on her Dexilant with good control of her GERD. At this point she is satisfied with her GI regimen and does not request a require any further workup. Since she is 44 I still want to persist with a colonoscopy for screening and I will put another note into the schedulers since she never heard to schedule a date. ROV 6 mos COLONOSCOPY BIOPSY Medications: Refilled dexlansoprazole 60 mg PO DAILY 90 caps 1RF K21.00 - Gastro-esophageal reflux disease with esophagitis, without bleeding, K21.9 - Gastro-esophageal reflux disease without esophagitis, R13.10 - Dysphagia, unspecified famotidine TAKE 1 TABLET BY MOUTH AT BEDTIME 90 tabs 2RF K21.9 - Gastro- esophageal reflux disease without esophagitis, R10.13 - Epigastric pain hydrocortisone 2.5% (Proctosol HC) BE SURE TO INCLUDE RECTAL APPICATOR!! 1 appl [place] BID 30 grams 6RF hemorrhoids K64.9 - Unspecified hemorrhoids Coding Level of Care Code Est Pt Level 3 (97278) Diagnoses GERD (gastroesophageal reflux disease) K21.9 Periumbilical abdominal pain R10.33 Rectal bleeding K62.5
[2024-05-08 11:37] VITALS: BP 103/63; PULSE 70; BMI 18.9
== END 2024-05-08 12:11 | disposition home or self-care (01) ==
PROVIDERS: PCP Internal Medicine; Visit Provider Nurse Practitioner
DX: K21.9 Gastro-esophageal reflux disease without esophagitis (principal); R10.33 Periumbilical pain; K62.5 Hemorrhage of anus and rectum
CPT/HCPCS: 99213

== ENCOUNTER → 2024-05-08 11:21 | Outpatient (BNVA) | payer OTHER, SELFPAY | PROVIDERS: PCP Internal Medicine; Visit Provider Nurse Practitioner ==

== ENCOUNTER 2024-07-30 07:39 | Day surgery (SDC) | payer OTHER, SELFPAY ==
--- NOTE | 2024-07-29 10:17 | HO.ANESPROP2 ---
Documented by User: Inge Xiao NP 07/29/24 10:17 HPI - Anesthesia Eval Consult details Narrative: 44yo F for Colonoscopy PMFSH Active Problems Active Problems: All Active Problems Periumbilical abdominal pain (Acute) Tenesmus (Acute) Rectal bleeding (Acute) GERD (gastroesophageal reflux disease) (Acute) Dysphagia (Acute) Bile reflux esophagitis (Acute) Constipation (Acute) Past Medical History Medical History (Updated 05/08/24 @ 16:43 by BRIONNA Shook) Epigastric pain GERD (gastroesophageal reflux disease) Surgical History Surgical History Hx of colonoscopy History of esophagogastroduodenoscopy (EGD) Social History Social History Are you a primary home care music therapist to a significant other at home: No Do you presently have visiting nurse or other home services: No Alcohol intake: current Alcohol intake frequency: does not drink Patient Tobacco Use Status: Never used Tobacco Use of substances other than those prescribed or required for medical reasons: No Have you been hit, kicked, punched, or otherwise hurt by someone within the past year? If so, by whom?: No Are you DNR?: No Advance Directives: No Advance Directives Information Provided: Yes Recently lost weight without trying: No Meds Allergies Allergy/AdvReac Type Severity Reaction Status Date / Time No Known Allergies Allergy Verified 05/08/24 11:41 Home Medications ?Medication ?Instructions ?Recorded ?Confirmed ?Last Taken ?Type azelastine 137 mcg (0.1 %) nasal intranasal 06/08/23 Unknown History spray Assessment and Plan Assessment Anesthesia Assessment: Chart Reviewed Documented by User: Odilon Perez MD 07/30/24 09:06 PMFSH Active Problems Active Problems: gAll Active Problems Periumbilical abdominal pain (Acute) Tenesmus (Acute) Rectal bleeding (Acute) GERD (gastroesophageal reflux disease) (Acute) Dysphagia (Acute) Bile reflux esophagitis (Acute) Constipation (Acute) Past Medical History Medical History (Updated 05/08/24 @ 16:43 by BRIONNA Shook) Epigastric pain GERD (gastroesophageal reflux disease) Patient : No Family History Family history of problems with anesthesia: No Surgical History Surgical History Hx of colonoscopy History of esophagogastroduodenoscopy (EGD) History of Problems with Anesthesia: No Social History Social History Are you a primary home care music therapist to a significant other at home: No Do you presently have visiting nurse or other home services: No Alcohol intake: current Alcohol intake frequency: does not drink Patient Tobacco Use Status: Never used Tobacco Use of substances other than those prescribed or required for medical reasons: No Have you been hit, kicked, punched, or otherwise hurt by someone within the past year? If so, by whom?: No Are you DNR?: No Advance Directives: No Advance Directives Information Provided: Yes Recently lost weight without trying: No Meds Allergies Allergy/AdvReac Type Severity Reaction Status Date / Time No Known Allergies Allergy Verified 05/08/24 11:41 Home Medications ?Medication ?Instructions ?Recorded ?Confirmed ?Last Taken ?Type azelastine 137 mcg (0.1 %) nasal intranasal 06/08/23 Unknown History spray Exam Airway Mallampati Class: I TM Dist: >3cm Neck ROM: Full Heart: ok Lungs: ok Assessment and Plan Assessment Anesthesia Assessment: Anesthesia Plan Discussed Final Anesthetic Review Family History of Problems with Anesthesia: No History of Problems with Anesthesia: No NPO: Yes ASA Class: II Final Preanesthetic Review: No Changes in Pt Med Stat, Meds/Allgs Chart Reviewed, Consent Obtained/Reviewed and Anes Risks/Benef Reviewed Patient Risk: Low Procedure Risk: Low Anesthetic Plan Anesthetic Plan: MAC: and Agree w/ Assess. and Plan Disposition: Standard PACU
[2024-07-30 07:50] VITALS: BP 88/66; PULSE 81; RESP 16; TEMP 36.7; O2SAT 99; BMI 17.7
[2024-07-30] MEDS: Lactated Ringers 1,000 ML 100 ML IVCONT (08:01)
[2024-07-30 08:13] LABS: UPreg QC Valid YES; Urine Pregnancy NEGATIVE (NEGATIVE)
--- NOTE | 2024-07-30 08:49 | P.HPSUR_ITS ---
Pre-Procedural Eval Section A - 24 Hr Update-Section A only Date of Service: 07/30/24 Section B - Complete if H&P > 30 days Chief Complaint: Hemorrhage of anus and rectum Relevant Family History (Specify if Yes): No Relevant Social History: None Present Medications: see Short Stay Collaborative assessment Medical History: Significant History (Epigastric pain GERD (gastroesophageal reflux disease)) History of Previous Operations: Relevant previous surgery/procedure and date(s) (Hx of colonoscopy History of esophagogastroduodenoscopy (EGD)) Allergies: Allergies Allergy/AdvReac Type Severity Reaction Status Date / Time No Known Allergies Allergy Verified 05/08/24 11:41 Review of Systems Sugical H&P ROS: Negative: Constitution, Cardiovascular, Respiratory, Neurological, Psychiatric, Hem-Onc, Allergic/Immunologic, Gastrointestinal, Genitourinary, Musculoskeletal, Integumentary, Endocrine and Eyes/Ears/Nose/Throat Exam Surgical H&P Exam: Normal: HEENT, Normal: Heart, Normal: Lungs, Normal: Extremi ties, Normal: Abdomen, Normal: Skin and Normal: Neurological Plan Diagnosis/Plan: Unchanged I have reviewed the history and physical and performed a pertinent physical examination on my patient. No changes have occurred unless specified. Time Spent With Patient Time: Total time managing care of this patient today ____ minutes.
--- NOTE | 2024-07-30 09:19 | HO.OPN-COLON ---
Colonoscopy Operative Note Operative Note Date of Service: 07/30/24 Narrative: Procedure Description: Colonoscopy Indication: rectal bleeding Anesthesia: MAC COLONOSCOPY Instrument: Olympus variable stiffness pediatric scope 190L Colonoscopy Monitoring: Vital signs and clinical assessment, continuous EKG monitoring, Pulse oximetry, Carbon Dioxide monitoring and blood pressure monitoring were done throughout the procedure. Colon withdrawal time was 9 minutes. Procedure: The patient was placed in the left lateral decubitis position and pre-procedure medications were administered. After a digital rectal examination of the ano-rectum, the video colonoscope was inserted into the rectum and advanced through the colon to the cecum/TI. The colonoscope was slowly withdrawn in a retrograde panoramic fashion and the colon mucosa was carefully examined including a retroflexed view of the rectum. Findings and interventions are described below. Procedure Difficulty: easy Findings: Terminal Ileum-normal Cecum:normal right sided retroflexion- normal Ascending Colon: normal Transverse Colon - 5-6 mm sessile polyp removed with cold forceps Descending Colon:normal Sigmoid Colon: normal Rectum: Retroflexion with small internal hemorrhoids seen, grade I Anorectum - normal Intervention: cold forceps Colon preparation: [place] Bowel Preparation Scale Right colon; 1-2 Transverse colon: 2 Left colon; 2 (0 = Unprepared colon segment with mucosa not seen due to solid stool that cannot be cleared. 1 = Portion of mucosa of the colon segment seen, but other areas of the colon segment not well seen due to staining, residual stool and/or opaque liquid. 2 = Minor amount of residual staining, small fragments of stool and/or opaque liquid, but mucosa of colon segment seen well. 3 = Entire mucosa of colon segment seen well with no residual staining, small fragments of stool or opaque liquid) Impression and Post Procedure Diagnosis: colon polyp internal hemorrhoids Plan: High fiber diet leaflet Avoid straining at stool, epsom salts and sitz bath, anusol supps or cream Repeat Colonoscopy in 5 years due to some areas of fair prep or earlier if clinically indicated
[2024-07-30 09:22] VITALS: BP 91/58; PULSE 84; RESP 16; TEMP 36.6; O2SAT 97
[2024-07-30 09:37] VITALS: BP 102/62; PULSE 77; RESP 16; TEMP 36.1; O2SAT 98
== END 2024-07-30 10:05 | disposition home or self-care (01) ==
PROVIDERS: Nurse Practitioner; Visit Provider Internal Medicine Gastroenterology
PROC: 0DJD8ZZ Inspection of Lower Intestinal Tract, Via Natural or Artificial Opening Endoscopic (ICD-10-PCS; CPT 45378; principal; 2024-07-30 08:30)
DX: D12.3 Benign neoplasm of transverse colon (principal); K64.0 First degree hemorrhoids
CPT/HCPCS: 45380; 81025; 88305; J2704

== ENCOUNTER → 2024-07-30 07:39 | Outpatient (BNV) | payer OTHER, SELFPAY | PROVIDERS: Visit Provider Internal Medicine Gastroenterology | DX: K62.5 Hemorrhage of anus and rectum (principal); K63.5 Polyp of colon; K64.0 First degree hemorrhoids | CPT/HCPCS: 45380 ==

== ENCOUNTER 2024-08-20 10:20 | Outpatient (AMB) | payer OTHER, SELFPAY ==
[2024-08-20 10:26] VITALS: BP 112/75; PULSE 75; BMI 18.7
--- NOTE | 2024-08-20 10:26 | MHC.OFFVIS ---
Vital Signs 08/20/24 10:26 Height 5 ft 5 in Weight 112 lb 6.972 oz BMI 18.7 BP 112/75 Blood Pressure Location Rt brachial Position Sitting Pulse 75 Intake Visit Reasons: s/p colon Intake Note: Patient presents to in office today in follow up s/p colonoscopy. CC: Patient reports doing well and denies having any new GI concerns today. Associate Professor Of Library Media Required: Yes Associate Professor Of Library Media Language: Serbian - Traditional Associate Professor Of Library Media Name: Magi Sesay Accompanied by: Self / Same As Patient Allergies No Known Allergies Allergy (Verified 08/20/24 10:38) HPI HPI s/p colon: Details: Assessment & Plan (1) GERD (gastroesophageal reflux disease): Comment: With fairly extensive esophagitis on 04/2021 EGD she needs to stay on her Dexilant. Code(s): K21.9 - Gastro-esophageal reflux disease without esophagitis Category: Medical (2) Periumbilical abdominal pain: Code(s): R10.33 - Periumbilical pain Category: Medical (3) Rectal bleeding: Code(s): K62.5 - Hemorrhage of anus and rectum Category: Medical Plan MANDARIN # female family member translates per patient request From last note: periumbilical pain that feels like muscle pulling pain. This happens prior to a BM and is relieved with defecation. However, it is very painful about 910. We review all of the test that do not show any serious pathology to explain her pain. Fortunately the pain has not returned and she has not been using the dicyclomine. It likely was bowel irritability and I tell her that if it does return then she can try the dicyclomine. She continues on her Dexilant with good control of her GERD. At this point she is satisfied with her GI regimen and does not request a require any further workup. Since she is 44 I still want to persist with a colonoscopy for screening and I will put another note into the schedulers since she never heard to schedule a date. ROV 6 mos Medications: Refilled dexlansoprazole 60 mg PO DAILY 90 caps 1RF K21.00 - Gastro-esophageal reflux disease with esophagitis, without bleeding, K21.9 - Gastro-esophageal reflux disease without esophagitis, R13.10 - Dysphagia, unspecified famotidine TAKE 1 TABLET BY MOUTH AT BEDTIME 90 tabs 2RF K21.9 - Gastro-esophageal reflux disease without esophagitis, R10.13 - Epigastric pain hydrocortisone 2.5% (Proctosol HC) BE SURE TO INCLUDE RECTAL APPICATOR!! 1 appl ID BID 30 grams 6RF hemorrhoids K64.9 - Unspecified hemorrhoids COLONOSCOPY 07/30/24 Findings: Terminal Ileum-normal Cecum:normal right sided retroflexion- normal Ascending Colon: normal Transverse Colon - 5-6 mm sessile polyp removed with cold forceps Descending Colon:normal Sigmoid Colon: normal Rectum: Retroflexion with small internal hemorrhoids seen, grade I Anorectum - normal Intervention: cold forceps Impression and Post Procedure Diagnosis: colon polyp internal hemorrhoids Plan: High fiber diet leaflet Avoid straining at stool, epsom salts and sitz bath, anusol supps or cream Repeat Colonoscopy in 5 years due to some areas of fair prep or earlier if clinically indicated BIOPSY Received: 07/30/24 Diagnosis Colon, transverse, polyp: Colonic mucosa with lymphoid aggregate, otherwise no specific change; no adenomatous dysplasia seen CORRESPONDENCE On 05/05/24 @ 14:04 Liya Hamilton Wrote To Awan LVM at [place] informing them that we need CT report before 05/08 when patient will be coming for follow up. I will follow up on this and if not ready will call to r/s gage TODAY'S VISIT [facility] #[id number] She is agreeable to a 5 year follow-up. The procedure was well tolerated. The results were explained and the patient is agreeable to the follow-up interval as stated. The bowel pattern has returned to normal. Education was provided to tell any 1st degree relatives about their findings to be sure that they are screened by age 45. Educated that they will be put on a recall list when it is time for their repeat scope but should they move out of state or away from the hospital they will need to remember along with their primary to repeat the procedure in a timely fashion to avoid any adverse complications. She continues to do well utilizing her Dexilant for her GERD and she did find the dicyclomine helpful with the periumbilical abdominal pain. At this time she seems to be happy with her GI regimen. Return office visit in 6 months. [facility] Medical History Epigastric pain GERD (gastroesophageal reflux disease) Surgical History Hx of colonoscopy History of esophagogastroduodenoscopy (EGD) Social History Are you a primary child care coordinator to a significant other at home: No Do you presently have visiting nurse or other home services: No Alcohol intake: current Alcohol intake frequency: does not drink Patient Tobacco Use Status: Never used Tobacco Review of Systems Const Denies fatigue, Denies fever(s), Denies night sweats, Denies poor appetite and Denies weight loss ENT Reports Normal hearing present, Denies dental pain, Denies dysphagia, Denies hearing loss, Denies mouth pain, Denies odynophagia, Denies throat swelling, Denies tongue swelling and Reports other (Dentition adequate) Card Reports no additional complaints Resp Reports no additional complaints GI Details: Denies abdominal pain, Denies melena, Denies bloating, Denies hematochezia, Denies constipation, Reports GI cramping, Denies dysphagia, Denies excessive flatus, Denies early satiety, Reports heartburn, Denies diarrhea, Denies nausea, Denies odynophagia, Denies vomiting and Denies hematemesis Skin/Breast Denies pruritus, Denies lesions, Denies rash and Denies jaundice Neuro Reports Normal hearing present and Denies Abnormal speech present Endo Denies fatigue Aller/Immun Denies throat swelling and Denies tongue swelling Physical Exam Vital Signs: Last Vital Signs Pulse 75 08/20/24 10:26 BP 112/75 08/20/24 10:26 BMI result Body Mass Index 18.7 Const General: cooperative, no acute distress, well developed and well groomed Nutritional Appearance: well nourished and thin Orientation/consciousness: oriented to person, oriented to place and oriented to time Limitations: language barrier HEENT Head: Yes normocephalic and Yes atraumatic Eyes General: appearance normal, both eyes and all related structures Pupils: Equal, round and reactive pupils present Neck Neck: Yes normal visual inspection and Yes no lymphadenopathy Thyroid: Thyroid normal Resp Effort & Inspection: normal respiratory effort and able to speak in complete sentences Auscultation: clear to auscultation bilaterally Cardio Rate: regular rate Rhythm: regular rhythm Heart sounds: Normal, physiologic split S2 sound present Peripheral pulses: radial pulses present and posterior tibial pulses present GI Inspection: No distended and No Abdominal panniculus present Palpation (GI): Soft to palpation, nontender, no guarding, not rigid and No hepatosplenomegaly present Percussion: Yes normal to percussion Auscultation: normal bowel sounds Rectal Exam - Female: deferred Skin General skin exam: no rashes or lesions noted, turgor normal, skin not dry, no jaundice, No spider nevi and no striae Rashes: no rashes Nails: normal Neuro General: oriented to person, oriented to place and oriented to time Cranial nerves: Yes Equal, round and reactive pupils present and Yes Normal hearing present Speech: No Abnormal speech present Extrem General: Yes normal to inspection, No clubbing, No cyanosis and No edema Psych Appearance: grossly normal and well kempt Mental Status: mental status grossly normal Speech and movement: Normal speech and movement present Affect: normal affect Attitude: cooperative Thought process: Normal thought process present and not confabulating Thought content: Normal thought content present Insight: Limited insight present (Psych) Judgement: Limited judgement present (Psych) Assessment & Plan Assessment & Plan (1) GERD (gastroesophageal reflux disease): Comment: With fairly extensive esophagitis on 04/2021 EGD she needs to stay on her Dexilant. Code(s): K21.9 - Gastro-esophageal reflux disease without esophagitis Category: Medical (2) Periumbilical abdominal pain: Code(s): R10.33 - Periumbilical pain Category: Medical (3) Dysphagia: Comment: Worsened with NSAIDs, improved with short-term Carafate likely caused by esophageal irritation Code(s): R13.10 - Dysphagia, unspecified Category: Medical (4) Bile reflux esophagitis: Comment: Worsen with NSAID, active inflammation irritation on 04/2021 EGD no Carroll's Code(s): K21.00 - Gastro-esophageal reflux disease with esophagitis, without bleeding Category: Medical (5) Constipation: Code(s): K59.00 - Constipation, unspecified Category: Medical Plan ALEXANDRA #[id number] She is agreeable to a 5 year follow-up. The procedure was well tolerated. The results were explained and the patient is agreeable to the follow-up interval as stated. The bowel pattern has returned to normal. Education was provided to tell any 1st degree relatives about their findings to be sure that they are screened by age 45. Educated that they will be put on a recall list when it is time for their repeat scope but should they move out of state or away from the hospital they will need to remember along with their primary to repeat the procedure in a timely fashion to avoid any adverse complications. She continues to do well utilizing her Dexilant for her GERD and she did find the dicyclomine helpful with the periumbilical abdominal pain. At this time she seems to be happy with her GI regimen. Return office visit in 6 months. Medications: Refilled dexlansoprazole 60 mg PO DAILY 90 caps 1RF K21.00 - Gastro-esophageal reflux disease with esophagitis, without bleeding, K21.9 - Gastro-esophageal reflux disease without esophagitis, R13.10 - Dysphagia, unspecified famotidine TAKE 1 TABLET BY MOUTH AT BEDTIME 90 tabs 2RF K21.9 - Gastro-esophageal reflux disease without esophagitis, R10.13 - Epigastric pain dicyclomine 10 mg PO QID PRN 90 caps 6RF abdominal pain R10.33 - Periumbilical pain Discontinued bisacodyl (Dulcolax (bisacodyl)) Discontinued Reason: Doctor's Order 10 mg (2 x 5 mg) PO BEDTIME 2 days 4 tabs 0RF Coding Level of Care Code Est Pt Level 3 (94849) Diagnoses GERD (gastroesophageal reflux disease) K21.9 Periumbilical abdominal pain R10.33 Dysphagia R13.10 Bile reflux esophagitis K21.00 Constipation K59.00
== END 2024-08-20 10:53 | disposition home or self-care (01) ==
PROVIDERS: PCP Internal Medicine; Visit Provider Nurse Practitioner
DX: K21.9 Gastro-esophageal reflux disease without esophagitis (principal); R10.33 Periumbilical pain; R13.10 Dysphagia, unspecified; K21.00 Gastro-esophageal reflux disease with esophagitis, without bleeding; K59.00 Constipation, unspecified
CPT/HCPCS: 99213

== ENCOUNTER → 2024-08-20 10:20 | Outpatient (BNVA) | payer OTHER, SELFPAY | PROVIDERS: PCP Internal Medicine; Visit Provider Nurse Practitioner ==

== ENCOUNTER 2025-03-31 10:48 | Outpatient (AMB) | payer OTHER, SELFPAY ==
--- NOTE | 2025-03-31 10:50 | MHC.OFFVIS ---
Vital Signs 03/31/25 10:52 Height 5 ft 5 in Weight 110 lb 3.698 oz BMI 18.3 BP 104/59 L Blood Pressure Location Lt brachial Position Sitting Pulse 73 Intake Visit Reasons: r/s 02/19 Intake Note: Karena presents in the office as a follow up. CC: She states that she is not having any concerns at this time. Montessori Paraprofessional Required: Yes Montessori Paraprofessional Name: Apoorva [id number] Allergies No Known Allergies Allergy (Verified 08/20/24 10:38) HPI HPI r/s 02/19: Details: Assessment & Plan (1) GERD (gastroesophageal reflux disease): Comment: With fairly extensive esophagitis on 04/2021 EGD she needs to stay on her Dexilant. Code(s): K21.9 - Gastro-esophageal reflux disease without esophagitis Category: Medical (2) Periumbilical abdominal pain: Code(s): R10.33 - Periumbilical pain Category: Medical (3) Dysphagia: Comment: Worsened with NSAIDs, improved with short-term Carafate likely caused by esophageal irritation Code(s): R13.10 - Dysphagia, unspecified Category: Medical (4) Bile reflux esophagitis: Comment: Worsen with NSAID, active inflammation irritation on 04/2021 EGD no Carroll's Code(s): K21.00 - Gastro-esophageal reflux disease with esophagitis, without bleeding Category: Medical (5) Constipation: Code(s): K59.00 - Constipation, unspecified Category: Medical Plan ALEXANDRA #[id number] She is agreeable to a 5 year follow-up. The procedure was well tolerated. The results were explained and the patient is agreeable to the follow-up interval as stated. The bowel pattern has returned to normal. Education was provided to tell any 1st degree relatives about their findings to be sure that they are screened by age 45. Educated that they will be put on a recall list when it is time for their repeat scope but should they move out of state or away from the hospital they will need to remember along with their primary to repeat the procedure in a timely fashion to avoid any adverse complications. She continues to do well utilizing her Dexilant for her GERD and she did find the dicyclomine helpful with the periumbilical abdominal pain. At this time she seems to be happy with her GI regimen. Return office visit in 6 months. Medications: Refilled dexlansoprazole 60 mg PO DAILY 90 caps 1RF K21.00 - Gastro-esophageal reflux disease with esophagitis, without bleeding, K21.9 - Gastro-esophageal reflux disease without esophagitis, R13.10 - Dysphagia, unspecified famotidine TAKE 1 TABLET BY MOUTH AT BEDTIME 90 tabs 2RF K21.9 - Gastro-esophageal reflux disease without esophagitis, R10.13 - Epigastric pain dicyclomine 10 mg PO QID PRN 90 caps 6RF abdominal pain R10.33 - Periumbilical pain Discontinued bisacodyl (Dulcolax (bisacodyl)) Discontinued Reason: Doctor's Order 10 mg (2 x 5 mg) PO BEDTIME 2 days 4 tabs 0RF TODAY'S VISIT [facility]#[id number] She continues to do well utilizing her Dexilant for her GERD and she did find the dicyclomine helpful with the periumbilical abdominal pain. She has not needed to use it recently, which is fine. She also has had no further problem with hemorrhoids. ROV 6 mos. [facility] Medical History (Updated 03/31/25 @ 11:03 by BRIONNA Shook) Rectal bleeding Epigastric pain GERD (gastroesophageal reflux disease) Surgical History Hx of colonoscopy History of esophagogastroduodenoscopy (EGD) Social History Are you a primary childcare director to a significant other at home: No Do you presently have visiting nurse or other home services: No Alcohol intake: current Alcohol intake frequency: does not drink Patient Tobacco Use Status: Never used Tobacco Review of Systems Const Denies fatigue, Denies fever(s), Denies night sweats, Denies poor appetite and Denies weight loss ENT Reports Normal hearing present, Denies dental pain, Denies dysphagia, Denies hearing loss, Denies mouth pain, Denies odynophagia, Denies throat swelling, Denies tongue swelling and Reports other (Dentition adequate) Card Reports no additional complaints Resp Reports no additional complaints GI Details: Denies abdominal pain, Denies melena, Denies bloating, Denies hematochezia, Denies constipation, Reports GI cramping, Denies dysphagia, Denies excessive flatus, Denies early satiety, Reports heartburn, Denies diarrhea, Denies nausea, Denies odynophagia, Denies vomiting and Denies hematemesis Skin/Breast Denies pruritus, Denies lesions, Denies rash and Denies jaundice Neuro Reports Normal hearing present and Denies Abnormal speech present Endo Denies fatigue Aller/Immun Denies throat swelling and Denies tongue swelling Physical Exam Vital Signs: Last Vital Signs Pulse 73 03/31/25 10:52 BP 104/59 L 03/31/25 10:52 BMI result Body Mass Index 18.3 Const General: cooperative, no acute distress, well developed and well groomed Nutritional Appearance: average body habitus and well nourished Orientation/consciousness: oriented to person, oriented to place and oriented to time Limitations: language barrier HEENT Head: Yes normocephalic and Yes atraumatic Eyes General: appearance normal, both eyes and all related structures Pupils: Equal, round and reactive pupils present Neck Neck: Yes normal visual inspection and Yes no lymphadenopathy Thyroid: Thyroid normal Resp Effort & Inspection: normal respiratory effort and able to speak in complete sentences Auscultation: clear to auscultation bilaterally Cardio Rate: regular rate Rhythm: regular rhythm Heart sounds: Normal, physiologic split S2 sound present Peripheral pulses: radial pulses present and posterior tibial pulses present GI Inspection: No distended and No Abdominal panniculus present Palpation (GI): Soft to palpation, nontender, no guarding, not rigid and No hepatosplenomegaly present Percussion: Yes normal to percussion Auscultation: normal bowel sounds Rectal Exam - Female: deferred Skin General skin exam: no rashes or lesions noted, turgor normal, skin not dry, no jaundice, No spider nevi and no striae Rashes: no rashes Nails: normal Neuro General: oriented to person, oriented to place and oriented to time Cranial nerves: Yes Equal, round and reactive pupils present and Yes Normal hearing present Speech: No Abnormal speech present Extrem General: Yes normal to inspection, No clubbing, No cyanosis and No edema Psych Appearance: grossly normal and well kempt Mental Status: mental status grossly normal Speech and movement: Normal speech and movement present Affect: normal affect Attitude: cooperative Thought process: Normal thought process present and not confabulating Thought content: Normal thought content present Insight: Good insight present (Psych) Judgement: Good judgement present (Psych) Assessment & Plan Assessment & Plan (1) Periumbilical abdominal pain: Code(s): R10.33 - Periumbilical pain Category: Medical (2) GERD (gastroesophageal reflux disease): Comment: With fairly extensive esophagitis on 04/2021 EGD she needs to stay on her Dexilant. Code(s): K21.9 - Gastro-esophageal reflux disease without esophagitis Category: Medical (3) Tenesmus: Code(s): R19.8 - Other specified symptoms and signs involving the digestive system and abdomen Category: Medical (4) Dysphagia: Comment: Worsened with NSAIDs, improved with short-term Carafate likely caused by esophageal irritation Code(s): R13.10 - Dysphagia, unspecified Category: Medical (5) Bile reflux esophagitis: Comment: Worsen with NSAID, active inflammation irritation on 04/2021 EGD no Carroll's Code(s): K21.00 - Gastro-esophageal reflux disease with esophagitis, without bleeding Category: Medical Plan [facility]#[id number] She continues to do well utilizing her Dexilant for her GERD and she did find the dicyclomine helpful with the periumbilical abdominal pain. She has not needed to use it recently, which is fine. She also has had no further problem with hemorrhoids. ROV 6 mos. Medications: Refilled dexlansoprazole 60 mg PO DAILY 90 caps 1RF K21.00 - Gastro-esophageal reflux disease with esophagitis, without bleeding, K21.9 - Gastro-esophageal reflux disease without esophagitis, R13.10 - Dysphagia, unspecified dicyclomine 10 mg PO QID PRN 90 caps 6RF abdominal pain R10.33 - Periumbilical pain hydrocortisone 2.5% (Proctosol HC) BE SURE TO INCLUDE RECTAL APPICATOR!! 1 appl MD BID 30 grams 6RF hemorrhoids K64.9 - Unspecified hemorrhoids Coding Level of Care Code Est Pt Level 3 (51431) Diagnoses Periumbilical abdominal pain R10.33 GERD (gastroesophageal reflux disease) K21.9 Tenesmus R19.8 Dysphagia R13.10 Bile reflux esophagitis K21.00
[2025-03-31 10:52] VITALS: BP 104/59; PULSE 73; BMI 18.3
--- OUTSIDE RECORDS SUMMARY | 2025-03-31 12:01 | XMS_ITS | Clinical Summary ---
Author Organization [address] [facility] Address [address] [place] [address] Phone Care Team Providers Care Netbackup Administrator Name Role Phone Thom Crum MD Primary Care Provider [phone] Encounters Date Type Department Care Team Description 01/06/2025 Lab Requisition [facility] - Main Lab [address] [facility] [place] [address] Lucas Georges MD Other chronic cystitis without hematuria from Last 3 Months Social History Tobacco Use Types Packs/Day Years Used Date Smoking Tobacco: Never Assessed Comments Unknown Sex and Gender Information Value Date Recorded Sex Assigned at Not on file Legal Sex Female 6:44 PM EST Gender Identity Not on file Sexual Orientation Not on file Plan of Treatment Health Maintenance Due Date Last Done Comments Breast Cancer Screening 1979 DTaP,Tdap,and Td Vaccines (1 - Tdap) 1998 Hepatitis B Vaccines (1 of 3 - 19+ 3-dose series) 1998 Cervical Cancer Screening: P ap Smear 2000 COVID-19 Vaccine (2023-2 5 season) 2024 Colorectal Cancer Screening: Colonoscopy 01/07/2025 Depression Screening 01/07/2025 HIV Screening 01/07/2025 Hepatitis C Screening 01/07/2025 Social Influencers of Health Screening 01/07/2025 Influenza Vaccine (Season Ended) 2025 HIB Vaccines Aged Out No longer eligi ble based on patient's age to complete this topic HPV Vaccines Aged Out No longer eligi ble based on patient's age to complete this topic Hepatitis A Vaccines Aged Out No long er eligible based on patient's age to complete this topic IPV Vaccines Aged Out No longer eligi ble based on patient's age to complete this topic MMR Vaccines Aged Out No longer eligi ble based on patient's age to complete this topic Meningococcal ACWY Vaccine Aged Out N o longer eligible based on patient's age to complete this topic Meningococcal B Vaccine Aged Out No l onger eligible based on patient's age to complete this topic Pneumococcal Vaccine: Pediat rics (0 to 5 Years) and At-Risk Patients (6 to 64 Years) Aged Out No longer eligible b ased on patient's age to complete this topic RSV Immunization Patients Un anatoly 20 months Aged Out No longer eligible b ased on patient's age to complete this topic Varicella Vaccines Aged Out No longer eligible based on patient's age to complete this topic Procedures Procedure Name Priority Date/Time Associated Diagnosis Comments COMPLETE BLOOD COUNT Routine 01/06/2025 12:00 AM EST Other chronic cystitis without hematuria from Last 3 Months Results * (ABNORMAL) Complete blood count (01/06/2025 12:00 AM EST) WBC 5.0 4.8 - 10.8 K/mcL LAB HEMETOLOGY METHOD 01/06/2025 7:31 PM [facility] RBC 4.40 3.80 - 4.80 M/mcL LAB HEMETOLOGY METHOD 01/06/2025 7:31 PM [facility] Hemoglobin 12.8 11.5 - 16.0 g/dL LAB HEMETOLOGY METHOD 01/06/2025 7:31 PM [facility] Hematocrit 40.6 35.0 - 47.0 % LAB HEMETOLOGY METHOD 01/06/2025 7:31 PM [facility] MCV 91.6 79.0 - 98.0 FL LAB HEMETOLOGY METHOD 01/06/2025 7:31 PM [facility] MCH 28.9 27.0 - 32.0 pcg LAB HEMETOLOGY METHOD 01/06/2025 7:31 PM [facility] MCHC 31.5(L) 32.0 - 37.0 g/dL LAB HEMETOLOGY METHOD 01/06/2025 7:31 PM [facility] RDW 12.9 11.0 - 15.0 % LAB HEMETOLOGY METHOD 01/06/2025 7:[address] [facility] Platelets 268 130 - 400 K/mcL LAB HEMETOLOGY METHOD 01/06/2025 7:[address] [facility] MPV 10.3 7.0 - 11.0 FL LAB HEMETOLOGY METHOD 01/06/2025 7:[address] [facility] NRBC 0.0 <1.0 % LAB HEMETOLOGY METHOD 01/06/2025 7:[address] [facility] NRBC Absolute 0.00 <0.10 K/mcL LAB HEMETOLOGY METHOD 01/06/2025 7:31 PM [facility] Blood Venous blood specimen / Unknown 01/06/2025 01/06/2025 6:47 PM EST us Lucas Georges MD LAB BLOOD ORDERABLES Final Resu lt [facility] [address] [place] [address], from Last 3 Months Insurance MEDICAID - [place] [facility] Care Teams Netbackup Administrator Relationship Specialty Start Date End Date Thom Crum MD [address] [place], [place] [id number] PCP - General Internal Medicine 01/06/25
--- OUTSIDE RECORDS SUMMARY | 2025-03-31 12:01 | XMS_ITS | Encounter Summary ---
Author Organization [facility] Address [address] [place] [address] Care Team Providers Care Personal Investment Adviser Name Role Phone Thom Crum MD Primary Care Provider [phone] Encounter Details Date Type Department Care Team (Late st Contact Info) Description 01/06/2025 Lab Requisition [facility] - Main Lab [address] [facility] [place] [address] Lucas Georges MD [address] [facility] [address] [place] [id number] Other chronic cystitis without hematuria Social History Tobacco Use Types Packs/Day Years Used Date Smoking Tobacco: Never Assessed Comments Unknown Sex and Gender Information Value Date Recorded Sex Assigned at Not on file Legal Sex Female 6:44 PM EST Gender Identity Not on file Sexual Orientation Not on file documented as of this encounter Plan of Treatment Not on file documented as of this encounter Procedures Procedure Name Priority Date/Time Associated Diagnosis Comments COMPLETE BLOOD COUNT Routine 01/06/2025 12:00 AM EST Other chronic cystitis without hematuria documented in this encounter Results * (ABNORMAL) Complete blood count (01/06/2025 12:00 AM EST) WBC 5.0 4.8 - 10.8 K/mcL LAB HEMETOLOGY METHOD 01/06/2025 7:31 PM EST [facility] RBC 4.40 3.80 - 4.80 M/mcL LAB HEMETOLOGY METHOD 01/06/2025 7:31 PM [facility] Hemoglobin 12.8 11.5 - 16.0 g/dL LAB HEMETOLOGY METHOD 01/06/2025 7:31 PM [facility] Hematocrit 40.6 35.0 - 47.0 % LAB HEMETOLOGY METHOD 01/06/2025 7:31 PM [facility] MCV 91.6 79.0 - 98.0 FL LAB HEMETOLOGY METHOD 01/06/2025 7:31 PM [facility] MCH 28.9 27.0 - 32.0 pcg LAB HEMETOLOGY METHOD 01/06/2025 7:31 PM [facility] MCHC 31.5(L) 32.0 - 37.0 g/dL LAB HEMETOLOGY METHOD 01/06/2025 7:31 PM [facility] RDW 12.9 11.0 - 15.0 % LAB HEMETOLOGY METHOD 01/06/2025 7:31 PM [facility] Platelets 268 130 - 400 K/mcL LAB HEMETOLOGY METHOD 01/06/2025 7:31 PM [facility] MPV 10.3 7.0 - 11.0 FL LAB HEMETOLOGY METHOD 01/06/2025 7:31 PM [facility] NRBC 0.0 <1.0 % LAB HEMETOLOGY METHOD 01/06/2025 7:31 PM [facility] NRBC Absolute 0.00 <0.10 K/mcL LAB HEMETOLOGY METHOD 01/06/2025 7:31 PM [facility] Blood Venous blood specimen / Unknown 01/06/2025 01/06/2025 6:47 PM EST us Lucas Georges MD LAB BLOOD ORDERABLES Final Resu lt [facility] [address] [place] [address], documented in this encounter Visit Diagnoses Diagnosis Other chronic cystitis without hematuria documented in this encounter Care Teams Personal Investment Adviser Relationship Specialty Start Date End Date Thom Crum MD [address] [place] [address] PCP - General Internal Medicine 01/06/25 documented as of this encounter
== END 2025-03-31 11:04 | disposition home or self-care (01) ==
LOC: HO.HGI 10:48
PROVIDERS: PCP Internal Medicine; Visit Provider Nurse Practitioner
DX: R10.33 Periumbilical pain (principal); K21.9 Gastro-esophageal reflux disease without esophagitis; R19.8 Other specified symptoms and signs involving the digestive system and abdomen; R13.10 Dysphagia, unspecified; K21.00 Gastro-esophageal reflux disease with esophagitis, without bleeding
CPT/HCPCS: 99213

== ENCOUNTER 2025-04-11 21:30 | Emergency (ER) | payer OTHER, SELFPAY ==
--- NOTE | ~2025-04-11 | CT_ITS ---
CLINICAL HISTORY: n v d, RLQ TTP CT abdomen and pelvis with contrast Comparison: None available Findings: No consolidation of the imaged lung bases. Mild fat deposition of the liver. Mild periportal edema. Gallbladder is contracted. Mild CBD dilatation is nonspecific measuring [address] at this time. Pancreas is partly obscured but otherwise unremarkable. Adrenal glands are partly obscured and otherwise normal. Spleen is nonenlarged. Left kidney is atrophic and/or diminutive. No right-sided hydronephrosis. Small cystic lesions in the kidneys are too small to characterize by imaging. Nonenlarged lymphadenopathy by CT. Low-density multiple small-bowel loops as can be seen with enteritis. No small bowel obstruction imaged appendix is within normal limits (imaged 449 of series 4). Fluid in the cecum can be seen with diarrhea type illnesses and mild colitis. Splenic flexure is redundant. Wall thickening of the large intestine is nonspecific and may reflect colitis, including imaged sigmoid colon. Mild fluid in the pelvis may be reactive and/or physiologic. Uterus is retroverted with mixed density. Underlying fibroid is considered by CT. No adnexal soft tissue mass by CT. Mild distention of the urinary bladder is nonspecific. IMPRESSION: 1. Mild wall thickening of the large intestine is nonspecific and may reflect colitis, including sigmoid colon. 2. No CT findings of acute appendicitis at this time. 3. No small bowel obstruction. 4. Left kidney is atrophic. This document has been electronically signed by: Daron Elizabeth MD on 04/12/2025 02:20:49
[2025-04-11 21:40] VITALS: BP 108/70; PULSE 82; RESP 16; TEMP 36.9; O2SAT 98; BMI 18.5
[2025-04-11 22:16] LABS: Basophils Percent Auto 0.3 % (0-2); Eosinophils Absolute Auto 0.1 X10*3/uL (0.0-0.4); Eosinophils Percent Auto 0.9 % (0-4); Hematocrit 35.6 % (37.0-47.0); Hemoglobin 12.5 g/dl (12.0-16.0); Imm Gran Abs Auto 0.02 X10*3/uL (0.00-0.03); Imm Gran Pct Auto 0.3 % (0.0-0.4); Lymphocytes Absolute Auto 0.6 X10*3/uL (1.2-4.9); Lymphocytes Percent Auto 8.1 % (20-40); MANUAL DIFF FLAG NO; Mean Corpuscular HGB Conc 35.1 g/dl (31.0-35.0); Mean Corpuscular Hemoglobin 29.9 pg (27.0-33.0); Mean Corpuscular Volume 85.2 fL (80.0-98.0); Mean Platelet Volume 9.5 fL (9.4-12.3); Monocytes Absolute Auto 0.4 X10*3/uL (0.1-1.2); Monocytes Percent Auto 5.1 % (2-11); Neutrophils Absolute Auto 5.9 x10*3/uL (2.0-8.3); Neutrophils Percent Auto 85.3 % (45-73); Platelet Count 230 X10*3/uL (160-400); Red Blood Count 4.18 X10*6/uL (4.20-5.50); Red Cell Distribution Width 13.1 % (11.0-16.0); White Blood Count 6.9 X10*3/uL (4.8-10.8)
[2025-04-11 22:17] LABS: Appearance Urine Clear; Color Urine Yellow; Glucose Urine UA Negative (Negative); Leukocyte Esterase Urine Trace (Negative); Nitrite Urine Negative (Negative); PH 5.5 (5.0-9.0); Specific Gravity - Urine 1.015 (1.005-1.025); UMIC TRIGGER UACC YES; Urine Blood Negative (Negative); Urine Ketones 15 mg/dL (Negative); Urine Protein Negative (Neg-Trace)
[2025-04-11 22:19] LABS: UPreg QC Valid YES; Urine Pregnancy NEGATIVE (NEGATIVE)
[2025-04-11 22:22] LABS: Bacteria Urine None Seen (None Seen); Hyaline Casts Urine 0-2 /LPF (0-2); RBC Urine 0-2 /HPF (0-2); WBC Urine 0-5 /HPF (0-5)
[2025-04-11 22:30] LABS: Alanine Aminotransferase 9 U/L (0-31); Albumin Level 4.3 g/dL (3.5-5.0); Alkaline Phosphatase 48 U/L (39-117); Anion Gap 11 (12-20); Aspartate Amino Transferase 18 U/L (5-31); Bilirubin Direct 0.2 mg/dL (0.0-0.5); Bilirubin Total 0.6 mg/dL (0.0-1.0); Blood Urea Nitrogen 10 mg/dL (9-16); Calcium 9.7 mg/dL (8.4-10.2); Carbon Dioxide 22 mmol/L (22-29); Chloride 107 mmol/L (96-108); Creatinine Clr Calc Pharmacy 84.2; Estimated Glomerular Filt Rate > 60; Glucose Random 90 mg/dL (60-115); Lipase 23 U/L (8-78); Potassium 3.4 mmol/L (3.3-5.1); Sodium 137 mmol/L (135-145); Total Protein 7.2 g/dL (6.5-8.0)
--- NOTE | 2025-04-11 22:46 | ED.ABDPAIN ---
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 Reports that she awoke at 09:00 this morning with generalized stomach discomfort, she tried to drink a glass of tea but felt her symptoms worsening. Pain localized to the epigastric/umbilical region with a associated nausea multiple episodes of bilious vomiting, and multiple episodes of yellow loose/watery diarrhea. She attempted to take in herbal Upper Sorbian medicine that is often taken for stomach upset but this did not help. Her symptoms continued to progress which prompted her evaluation in the emergency department this evening. She does admit to previous history of recurrent urinary tract infections, evidently she underwent a ?Partial nephrectomy on the left a few years back the [facility] and has had decreased frequency of urinary tract infection. Denies having urinary frequency/urgency/hesitancy, dysuria, hematuria. She denies pelvic pain, abnormal vaginal discharge primary concern for sexually transmitted infections or concern for . No associated chest pain, shortness of breath, difficulty breathing, fevers or chills. No known sick contacts. Related Data Home Medications ?Medication ?Instructions ?Recorded ?Confirmed azelastine 137 mcg (0.1 %) nasal intranasal 06/08/23 spray Previous Rx's ?Medication ?Instructions ?Recorded dexlansoprazole 60 mg 60 mg PO DAILY #90 caps 03/31/25 capsule,biphase delayed release dicyclomine 10 mg capsule 10 mg PO QID PRN abdominal pain 03/31/25 #90 caps hydrocortisone 2.5 % topical cream [address] BID hemorrhoids #30 grams 03/31/25 with perineal applicator (Proctosol HC) ondansetron 4 mg disintegrating 4 mg PO Q8H PRN nausea and 04/12/25 tablet vomiting #7 tabs Allergies Allergy/AdvReac Type Severity Reaction Status Date / Time No Known Allergies Allergy Verified 04/11/25 21:44 Review of Systems Review of Systems Yes all other systems are reviewed and are negative PMFSH Past Medical History Attestation statement: The following information was validated with the patient. Source: old records reviewed Medical History Rectal bleeding Epigastric pain GERD (gastroesophageal reflux disease) Surgical History Hx of colonoscopy History of esophagogastroduodenoscopy (EGD) Social History Social History Are you a primary complex care nurse to a significant other at home: No Do you presently have visiting nurse or other home services: No Alcohol intake: current Alcohol intake frequency: does not drink Patient Tobacco Use Status: Never used Tobacco Advance Directives: No Advance Directives Information Provided: No Physical Exam ED Vital Signs: Vital Signs - 24 hr 04/11/25 21:40 04/12/25 01:58 Temperature 98.4 F 98.4 F Pulse Rate 82 72 Respiratory Rate 16 16 Blood Pressure 108/70 104/64 Pulse Oximetry 98 97 Oxygen Delivery Method Room Air Room Air BMI result Body Mass Index 18.5 Appearance: Alert.?Oriented to person, place and time. No acute distress.?Normal affect. Eyes: Pupils equal, round and reactive to light.? ENT: Pharynx normal.?? Neck: Normal inspection.? Neck supple.?? CVS: Heart sounds normal. Normal heart rate and rhythm.? Pulses normal.?? Respiratory: No respiratory distress.? Lung sounds clear to auscultation bilaterally?? Abdomen: Soft mild epigastric tenderness, exquisite right lower quadrant tenderness and guarding on exam. No rebound tenderness. Negative rubs since as psoas sign. Mild left lower quadrant tenderness upon palpation. No CVA tenderness.. Normoactive bowel sounds. No pulsatile mass.?? Skin: Skin warm and dry.? Normal skin color.? Extremities: No lower extremity edema.? Neuro: Moves all extremities spontaneously. Sensation intact bilaterally. Ambulates with normal steady gait. Course Reevaluation(s) Reevaluation #1: CT reveals mild wall thickening of the large intestine nonspecific colitis or appendicitis bowel obstruction. Successful p.o. trial without increase in pain or vomiting, suspect a foodborne illness versus viral type gastroenteritis. Reviewed worrisome signs and symptoms that would warrant re-evaluation emergency department, stable for discharge home outpatient follow-up primary care provider. All questions answered Medical Decision Making Medical Decision Making [facility] Narrative: Patient is a 44-year-old female who presents emergency department for evaluation of abdominal pain with nausea vomiting diarrhea as per HPI. She appears uncomfortable at the time of my evaluation and fatigue. She is afebrile without tachycardia tachypnea or hypoxia no hypotension. On examination she has mild tenderness over the epigastrium but exquisitely tender in the right lower quadrant with guarding, no rebound tenderness. Will obtain CBC to evaluate for leukocytosis/ anemia, CMP and lipase to evaluate for abnormal electrolytes /abnormal renal function/ abnormal hepatic/biliary function, Urinalysis, CT of the abdomen and pelvis. Patient will receive 1 L normal saline IV fluid, Zofran IV for nausea, will trial GI cocktail at this time given the presence of vomiting epigastric pain Differential Diagnosis Differential Diagnoses: The differential diagnosis associated with the presentation includes (Gastritis, gastroenteritis, cholecystitis, appendicitis, viral syndrome) Admission/Observation Consideration of admission/observation: Escalation of care including admission/observation considered Lab Data [facility] Lab Attestation statement: I reviewed the patient's lab results. CBC is without leukocytosis or significant anemia, no thrombocytopenia. No electrolyte derangement. No PAYTON. LFTs and lipase unremarkable. Urinalysis with a bili evidence of urinary tract infection or microscopic hematuria. HCG was negative. 04/11/25 22:10 04/11/25 22:10 Labs: Lab Results 04/11/25 04/11/25 Range/Units 22:10 23:06 WBC 6.9 (4.8-10.8) X10*3/uL RBC 4.18 L (4.20-5.50) X10*6/uL Hgb 12.5 (12.0-16.0) g/dl Hct 35.6 L (37.0-47.0) % MCV 85.2 (80.0-98.0) fL MCH 29.9 (27.0-33.0) pg MCHC 35.1 H (31.0-35.0) g/dl RDW 13.1 (11.0-16.0) % Plt Count 230 (160-400) X10*3/uL MPV 9.5 (9.4-12.3) fL Immature Gran % (Auto) 0.3 (0.0-0.4) % Neut % (Auto) 85.3 H (45-73) % Lymph % (Auto) 8.1 L (20-40) % Atkinson % (Auto) 5.1 (2-11) % Eos % (Auto) 0.9 (0-4) % Baso % (Auto) 0.3 (0-2) % Lymph # (Auto) 0.6 L (1.2-4.9) X10*3/uL Atkinson # (Auto) 0.4 (0.1-1.2) X10*3/uL Eos # (Auto) 0.1 (0.0-0.4) X10*3/uL Baso # (Auto) 0.0 (0.0-0.2) X10*3/uL Abs Immat Gran (auto) 0.02 (0.00-0.03) X10*3/uL Absolute Neuts (auto) 5.9 (2.0-8.3) x10*3/uL Absolute Nucleated RBC 0.000 (0.0-0.012) X10*3/uL Nucleated RBC % (auto) 0.0 (0.0-0.2) /100WBC Sodium 137 (135-145) mmol/L Potassium 3.4 (3.3-5.1) mmol/L Chloride 107 (96-108) mmol/L Carbon Dioxide 22 (22-29) mmol/L Anion Gap 11 L (12-20) BUN 10 (9-16) mg/dL Creatinine 0.67 (0.5-1.4) mg/dL Estim Creat Clear Calc 84.2 Estimated GFR > 60 Random Glucose 90 (60-115) mg/dL Calcium 9.7 (8.4-10.2) mg/dL Total Bilirubin 0.6 (0.0-1.0) mg/dL Direct Bilirubin 0.2 (0.0-0.5) mg/dL AST 18 (5-31) U/L ALT 9 (0-31) U/L Alkaline Phosphatase 48 (39-117) U/L Total Protein 7.2 (6.5-8.0) g/dL Albumin 4.3 (3.5-5.0) g/dL Lipase 23 (8-78) U/L Urine Color Yellow Urine Appearance Clear Urine pH 5.5 (5.0-9.0) Ur Specific [place] 1.015 (1.005-1.025) Urine Protein Negative (Neg-Trace) mg/dL Urine Glucose (UA) Negative (Negative) mg/dL Urine Ketones 15 (Negative) mg/dL Urine Blood Negative (Negative) Urine Nitrite Negative (Negative) Ur Leukocyte Esterase Trace H (Negative) Urine RBC 0-2 (0-2) /HPF Urine WBC 0-5 (0-5) /HPF Ur Squamous Epith Cells 6-10 (0-2) /HPF Urine Bacteria None Seen (None Seen) Hyaline Casts 0-2 (0-2) /LPF Urine Test NEGATIVE (NEGATIVE) Influenza Type A (PCR) NEGATIVE (Negative) Influenza Type B (PCR) NEGATIVE (Negative) RSV RNA Qual (PCR) NEGATIVE (Negative) SARS-CoV-2 RNA (RT-PCR) NEGATIVE (Negative) Radiology Impression Discussion of test interpretation with radiology: I have reviewed the radiologist's reading. Radiologist Impression: CT abdomen and pelvis with contrast Comparison: None available Findings: No consolidation of the imaged lung bases. Mild fat deposition of the liver. Mild periportal edema. Gallbladder is contracted. Mild CBD dilatation is nonspecific measuring [address] at this time. Pancreas is partly obscured but otherwise unremarkable. Adrenal glands are partly obscured and otherwise normal. Spleen is nonenlarged. Left kidney is atrophic and/or diminutive. No right-sided hydronephrosis. Small cystic lesions in the kidneys are too small to characterize by imaging. Nonenlarged lymphadenopathy by CT. Low-density multiple small-bowel loops as can be seen with enteritis. No small bowel obstruction imaged appendix is within normal limits (imaged 449 of series 4). Fluid in the cecum can be seen with diarrhea type illnesses and mild colitis. Splenic flexure is redundant. Wall thickening of the large intestine is nonspecific and may reflect colitis, including imaged sigmoid colon. Mild fluid in the pelvis may be reactive and/or physiologic. Uterus is retroverted with mixed density. Underlying fibroid is considered by CT. No adnexal soft tissue mass by CT. Mild distention of the urinary bladder is nonspecific. IMPRESSION: 1. Mild wall thickening of the large intestine is nonspecific and may reflect colitis, including sigmoid colon. 2. No CT findings of acute appendicitis at this time. 3. No small bowel obstruction. 4. Left kidney is atrophic. Independent Historian Clinical information obtained from an independent historian. History obtained from or confirmed by: Spouse External Record Review External record reviewed: Outpatient record Chronic Conditions Patient?s care impacted by: Other (see pmfsh) Medications Administered Discontinued Medications Generic Name Dose Route Start Last Admin Trade Name Freq PRN Reason Stop Dose Admin Al Hydroxide/Mg Hydroxide 30 ml 04/11/25 23:04 04/11/25 23:25 Magnesium Hydrox/Alum Hydrox 30 Ml Oral.Susp PO 04/11/25 23:05 30 ml ONCE ONE Administration Famotidine 20 mg 04/11/25 23:04 04/11/25 23:25 Famotidine/Pf 20 Mg/2 Ml Vial IVPUSH 04/11/25 23:05 20 mg ONCE ONE Administration Sodium Chloride 1,000 mls @ 999 mls/hr 04/11/25 23:15 04/12/25 00:37 Ns IV 04/12/25 00:15 Infused .Q1H1M ITALO Infusion Iohexol 85 ml 04/12/25 00:12 04/12/25 00:12 Iohexol 350 Mg/Ml 100 Ml Infus..Btl IV 04/12/25 00:13 85 ml ONCE ONE Administration Lidocaine HCl 15 ml 04/11/25 23:04 04/11/25 23:25 Lidocaine Hcl Viscous 2 % 15 Ml Solution MUCOUS MEM 04/11/25 23:05 15 ml ONCE ONE Administration Ondansetron HCl 4 mg 04/11/25 23:04 04/11/25 23:25 Ondansetron Hcl 4 Mg/2 Ml Vial IVPUSH 04/11/25 23:05 4 mg ONCE ONE Administration Discharge Plan Discharge Clinical Impression: Gastroenteritis Patient Disposition: Home, Self-Care Instructions: Gastroenteritis (ED) Additional Instructions: Blood work shows very reassuring. CT scan revealed some inflammation of the intestines which can be seen setting of GI illness had a food-borne illness versus viral. Be sure to drink plenty of fluids over the next 72 hours. I sent a prescription for Zofran and antinausea medication to your pharmacy which you may use as needed as prescribed. Introduce a bland diet including crackers, bananas, rice, soup, toast, and boiled vegetables. This may progress to plain baked or boiled chicken or turkey. Avoid dairy products or foods high in fat or grease. Follow-up with primary care doctor. Return to emergency department any new or worsening symptoms or concerns. Prescriptions: New ondansetron 4 mg tablet,disintegrating 4 mg PO Q8H PRN (Reason: nausea and vomiting) Qty: 7 0RF No Action azelastine 137 mcg (0.1 %) aerosol,spray intranasal dexlansoprazole 60 mg capsule,biphase delayed releas 60 mg PO DAILY Qty: 90 1RF dicyclomine 10 mg capsule 10 mg PO QID PRN (Reason: abdominal pain) Qty: 90 6RF hydrocortisone [Proctosol HC] 2.5 % cream with perineal applicator [address] BID Qty: 30 6RF Rx Instructions: BE SURE TO INCLUDE RECTAL APPICATOR!! Referrals: Thom Crum MD [Primary Care Provider] - Print Language: Mandarin Upper Sorbian
[2025-04-11] MEDS: Magnesium Hydrox/Alum Hydrox 30 ML ORAL.SUSP PO (23:25)
[2025-04-11] MEDS: ondansetron HCL 4 MG/2 ML VIAL IVPUSH (23:25)
[2025-04-11] MEDS: Famotidine/PF 20 MG/2 ML VIAL IVPUSH (23:25)
[2025-04-11] MEDS: Lidocaine HCl Viscous 2 % 15 ML SOLUTION MUCOUS MEM (23:25)
[2025-04-11] MEDS: 0.9 % Sodium Chloride 1,000 ML 999 ML IV (23:35)
[2025-04-11 23:46] LABS: Influenza A PCR NEGATIVE (Negative); Influenza B PCR NEGATIVE (Negative); Resp Syncy Virus RNA Qual PCR NEGATIVE (Negative); SARS COV2 PCR INHOUSE NEGATIVE (Negative)
[2025-04-12] MEDS: iohexoL 350 MG/ML 100 ML INFUS..BTL 85 ML IV (00:12)
[2025-04-12 01:58] VITALS: BP 104/64; PULSE 72; RESP 16; TEMP 36.9; O2SAT 97
[2025-04-12 03:08] VITALS: BP 103/71; PULSE 75; RESP 16; TEMP 36.6; O2SAT 99
[2025-04-12 03:15] VITALS: BP 103/71; PULSE 75; RESP 16; TEMP 36.6; O2SAT 99
== END 2025-04-12 03:17 | disposition home or self-care (01) ==
PROVIDERS: Nurse Practitioner Family; Emergency Provider Emergency Medicine; PCP Internal Medicine
DX: K52.9 Noninfective gastroenteritis and colitis, unspecified (principal); R11.2 Nausea with vomiting, unspecified; Z03.818 Encounter for observation for suspected exposure to other biological agents ruled out; Z79.899 Other long term (current) drug therapy
CPT/HCPCS: 0241U; 36415; 74177; 80048; 80076; 81001; 81025; 83690; 85025; 96361; 96374; 96375; 99284; J1308; J2405; Q9967

== ENCOUNTER → 2025-04-11 23:04 | Outpatient (BNV) | payer OTHER, SELFPAY | PROVIDERS: Emergency Provider Emergency Medicine; PCP Internal Medicine; Visit Provider Radiology Neuroradiology | DX: N26.1 Atrophy of kidney (terminal) (principal) | CPT/HCPCS: 74177 ==

== ENCOUNTER 2025-10-01 08:49 | Outpatient (AMB) | payer OTHER, SELFPAY ==
--- NOTE | 2025-10-01 09:02 | MHC.OFFVIS ---
Vital Signs 10/01/25 09:06 Height 5 ft 5 in Weight 110 lb BMI 18.3 BP 102/62 Blood Pressure Location Lt brachial Position Sitting Pulse 76 Pulse Source Pulse Oximeter Pulse Oximetry (%) 99 Oxygen Delivery Method Room Air Intake Visit Reasons: 6 mo f/u Gerd, IBS Intake Note: Est pt for mgmt of GERD + IBS. CC; Pt denies any new GI sx or concerns at this time. Confirms she is taking current PPI which is working as intended. 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 Code(s): K21.9 - Gastro-esophageal reflux disease without esophagitis Category: Medical (3) Tenesmus: Code(s): R19.8 - Other specified symptoms and signs involving the digestive system and abdomen Category: Medical (4) Dysphagia: Comment: Worsened with NSAIDs, improved with short-term Carafate likely caused by esophageal irritation Code(s): R13.10 - Dysphagia, unspecified Category: Medical (5) Bile reflux esophagitis: Comment: Worsen with NSAID, active inflammation irritation on 04/2021 EGD no Carroll's Code(s): K21.00 - Gastro-esophageal reflux disease with esophagitis, without bleeding Category: Medical Plan [facility]#[id number] She continues to do well utilizing her Dexilant for her GERD and she did find the dicyclomine helpful with the periumbilical abdominal pain. She has not needed to use it recently, which is fine. She also has had no further problem with hemorrhoids. ROV 6 mos. Medications: Refilled dexlansoprazole 60 mg PO DAILY 90 caps 1RF K21.00 - Gastro-esophageal reflux disease with esophagitis, without bleeding, K21.9 - Gastro-esophageal reflux disease without esophagitis, R13.10 - Dysphagia, unspecified dicyclomine 10 mg PO QID PRN 90 caps 6RF abdominal pain R10.33 - Periumbilical pain hydrocortisone 2.5% (Proctosol HC) BE SURE TO INCLUDE RECTAL APPICATOR!! 1 appl MS BID 30 grams 6RF hemorrhoids K64.9 - Unspecified hemorrhoids TODAY'S VISIT Tomasa # DEXILANT PFSH Medical History Rectal bleeding Epigastric pain GERD (gastroesophageal reflux disease) Surgical History Hx of colonoscopy History of esophagogastroduodenoscopy (EGD) Social History Are you a primary medical care manager to a significant other at home: No Do you presently have visiting nurse or other home services: No Alcohol intake: current Alcohol intake frequency: does not drink Patient Tobacco Use Status: Never used Tobacco Review of Systems Const Denies fatigue, Denies fever(s), Denies night sweats, Denies poor appetite and Denies weight loss ENT Reports Normal hearing present, Denies dental pain, Denies dysphagia, Denies hearing loss, Denies mouth pain, Denies odynophagia, Denies throat swelling, Denies tongue swelling and Reports other (Dentition adequate) Card Reports no additional complaints Resp Reports no additional complaints GI Details: Denies abdominal pain, Denies melena, Denies bloating, Denies hematochezia, Denies constipation, Reports GI cramping, Denies dysphagia, Denies excessive flatus, Denies early satiety, Reports heartburn, Denies diarrhea, Denies nausea, Denies odynophagia, Denies vomiting and Denies hematemesis Skin/Breast Denies pruritus, Denies lesions, Denies rash and Denies jaundice Neuro Reports Normal hearing present and Denies Abnormal speech present Endo Denies fatigue Aller/Immun Denies throat swelling and Denies tongue swelling Physical Exam Vital Signs: Last Vital Signs Pulse 76 10/01/25 09:06 BP 102/62 10/01/25 09:06 Pulse Ox 99 10/01/25 09:06 Oxygen Delivery Method Room Air 11/20/25 09:06 BMI result Body Mass Index 18.3 Const General: cooperative, no acute distress, well developed and well groomed Nutritional Appearance: well nourished and thin Orientation/consciousness: oriented to person, oriented to place and oriented to time Limitations: No language barrier HEENT Head: Yes normocephalic and Yes atraumatic Eyes General: appearance normal, both eyes and all related structures Pupils: Equal, round and reactive pupils present Neck Neck: Yes normal visual inspection and Yes no lymphadenopathy Thyroid: Thyroid normal Resp Effort & Inspection: normal respiratory effort and able to speak in complete sentences Auscultation: clear to auscultation bilaterally Cardio Rate: regular rate Rhythm: regular rhythm Heart sounds: Normal, physiologic split S2 sound present Peripheral pulses: radial pulses present and posterior tibial pulses present GI Inspection: No distended and No Abdominal panniculus present Palpation (GI): Soft to palpation, nontender, no guarding, not rigid and No hepatosplenomegaly present Percussion: Yes normal to percussion Auscultation: normal bowel sounds Rectal Exam - Female: deferred Skin General skin exam: no rashes or lesions noted, turgor normal, skin not dry, no jaundice, No spider nevi and no striae Rashes: no rashes Nails: normal Neuro General: oriented to person, oriented to place and oriented to time Cranial nerves: Yes Equal, round and reactive pupils present and Yes Normal hearing present Speech: No Abnormal speech present Extrem General: Yes normal to inspection, No clubbing, No cyanosis and No edema Psych Appearance: grossly normal and well kempt Mental Status: mental status grossly normal Speech and movement: Normal speech and movement present Affect: normal affect Attitude: cooperative Thought process: Normal thought process present and not confabulating Thought content: Normal thought content present Insight: Good insight present (Psych) Judgement: Good judgement present (Psych) Assessment & Plan Assessment & Plan (1) GERD (gastroesophageal reflux disease): Comment: With fairly extensive esophagitis on 04/2021 EGD she needs to stay on her Dexilant. Code(s): K21.9 - Gastro-esophageal reflux disease without esophagitis Category: Medical (2) Constipation: Code(s): K59.00 - Constipation, unspecified Category: Medical (3) Bile reflux esophagitis: Comment: Worsen with NSAID, active inflammation irritation on 04/2021 EGD no Carroll's Code(s): K21.00 - Gastro-esophageal reflux disease with esophagitis, without bleeding Category: Medical Plan Tomasa melchor She continues on her Dexilant, dicyclomine PRN, and Proctosol cream PRN. She remains happy with her GI regimen but is reporting that she has intermittent abdominal pain after eating. She attributes this to spicy foods which are part of her culture, and this likely is the driving factor. She asks if she can take Tylenol for the pain and certainly she can but I think giving her a PRN dose of famotidine would be more helpful in terms of the underlying process. Return office visit in 6 months Medications: New famotidine (Pepcid) 20 mg PO DAILY PRN 30 tabs 6RF GERD K21.00 - Gastro-esophageal reflux disease with esophagitis, without bleeding Refilled dicyclomine 10 mg PO QID PRN 90 caps 6RF abdominal pain R10.33 - Periumbilical pain dexlansoprazole 60 mg PO DAILY 90 caps 1RF K21.00 - Gastro-esophageal reflux disease with esophagitis, without bleeding, K21.9 - Gastro-esophageal reflux disease without esophagitis, R13.10 - Dysphagia, unspecified hydrocortisone 2.5% (Proctosol HC) BE SURE TO INCLUDE RECTAL APPICATOR!! 1 appl MS BID 30 grams 6RF hemorrhoids K64.9 - Unspecified hemorrhoids Coding Level of Care Code Est Pt Level 3 (02784) Diagnoses GERD (gastroesophageal reflux disease) K21.9 Constipation K59.00 Bile reflux esophagitis K21.00
[2025-10-01 09:06] VITALS: BP 102/62; PULSE 76; O2SAT 99; BMI 18.3
== END 2025-10-01 09:27 | disposition home or self-care (01) ==
LOC: HO.HGI 08:49
PROVIDERS: PCP Internal Medicine; Visit Provider Nurse Practitioner
DX: K21.9 Gastro-esophageal reflux disease without esophagitis (principal); K59.00 Constipation, unspecified; K21.00 Gastro-esophageal reflux disease with esophagitis, without bleeding
CPT/HCPCS: 99213